=== PATIENT | female | born 1955 | race Caucasian/White ===

== ENCOUNTER → 2020-06-21 11:43 | Outpatient (CLI) | payer BC, SELFPAY ==
--- NOTE | ~2020-06-21 | XR_ITS ---
XR hand RT min 3V DATE: 06/21/2020 11:58 INDICATION: Right hand pain across metacarpals TECHNIQUE: 3 views COMPARISON: None FINDINGS: There is osteophytic changes of the interphalangeal joints including the first digit interp halangeal joint, distal interphalangeal joint of the second digit and proximal interphalangeal joint of the fifth digit in particular. No fracture, dislocation, periosteal reaction or bone destruction. No erosive change or chondrocalcin osis. IMPRESSION: Osteoarthritis of the interphalangeal joints Reviewed, dictated and finalized at location B.
--- NOTE | ~2020-06-21 | XR_ITS ---
XR hand LT min 3V DATE: 06/21/2020 11:57 INDICATION: Left hand pain across metacarpal region TECHNIQUE: 3 views of left hand COMPARISON: None FINDINGS: No fracture or dislocation, periosteal reaction or bone destruction. No erosive changes or chondrocalcinosis. Small degenerative ossicle at the dorsal aspect of the distal interphalangeal join t of the third digit. Osteoarthritic change of the distal interphalangeal joint of the second digit i s noted as well. IMPRESSION: Mild osteoarthritis Reviewed, dictated and finalized at location B. IMPRESSION: Mild osteoarthritis
== END ==
PROVIDERS: PCP Internal Medicine; Visit Provider Internal Medicine
DX: M19.041 Primary osteoarthritis, right hand (principal); M19.042 Primary osteoarthritis, left hand
CPT/HCPCS: 73130

== ENCOUNTER 2020-12-03 13:00 | Outpatient (CLI) | payer BC, SELFPAY | END 2020-12-03 13:01 | disposition home or self-care (01) | LOC: ANHCOVIDVC 13:00 | PROVIDERS: PCP Internal Medicine | DX: Z23 Encounter for immunization (principal) | CPT/HCPCS: 0001A; 91300 ==

== ENCOUNTER 2020-12-24 11:06 | Outpatient (CLI) | payer BC, SELFPAY | END 2020-12-24 11:07 | disposition home or self-care (01) | LOC: ANHCOVIDVC 11:06 | PROVIDERS: PCP Internal Medicine | DX: Z23 Encounter for immunization (principal) | CPT/HCPCS: 0002A; 91300 ==

== ENCOUNTER 2021-04-27 14:33 | Emergency (ER) | payer MEDICARE, SELFPAY ==
[2021-04-27 14:32] VITALS: BP 118/68; PULSE 74; RESP 14; TEMP 36.9; O2SAT 98
--- NOTE | 2021-04-27 14:36 | ECG_ITS ---
Measurements Intervals [place] Rate: 68 P: 35 MS: 157 QRS: 24 QRSD: 90 T: 29 QT: 406 QTc: 435 Interpretive Statements SINUS RHYTHM BORDERLINE T WAVE ABNORMALITY- ANTERIOR LEADS BORDERLINE ECG Electronically Signed On 04-27-2021 16:55:19 CDT by Easton Cedeño D.O.
[2021-04-27 15:34] VITALS: BP 126/73; PULSE 64; RESP 17; O2SAT 96
[2021-04-27 15:54] LABS: Basophils Absolute Auto 0.1 K/mm3 (0.0-0.1); Eosinophils Absolute Auto 0.1 K/mm3 (0-0.3); Eosinophils Percent Auto 2.2 % (0-4.4); Hematocrit 35.1 % (37.0-47.0); Hemoglobin 10.7 g/dL (12.0-15.0); Immature Granulocyte Absolute 0.02 K/mm3 (0.00-0.031); Immature Granulocyte Percent A 0.3 % (0-0.5); Immature Platelet Fraction Pct 5.8 % (0.9-11.2); Lymphocytes Absolute Auto 1.79 K/mm3 (0.9-3.2); Lymphocytes Percent Auto 29.7 % (18.3-44.2); Mean Corpuscular HGB Conc 30.5 g/dl (32-36); Mean Corpuscular Hemoglobin 21.9 pg (26-34); Mean Corpuscular Volume 71.9 fl (80-100); Monocytes Absolute Auto 0.7 K/mm3 (0.1-0.6); Monocytes Percent Auto 11.1 % (2.6-8.5); Neutrophils Absolute Auto 3.4 K/mm3 (1.3-6.7); Neutrophils Percent Auto 55.7 % (45.5-73.1); Platelet Count Result 253 k/mm3 (150-375); Red Blood Count 4.88 M/mm3 (4.2-5.4); Red Cell Distribution Width 15.4 % (11.5-14.5)
--- NOTE | 2021-04-27 16:03 | PC.NURSE ---
Patient attempting to provide urine at this time.
[2021-04-27] MEDS: SODIUM CHLORIDE 0.9% IV 1,000 ML 999 ML IV CONT (16:05)
[2021-04-27 16:08] LABS: Alanine Aminotransferase 27 U/L (4-35); Albumin Level 3.8 g/dL (3.5-5.1); Alkaline Phosphatase 63 U/L (38-126); Anion Gap 5 mmol/L (8-16); Aspartate Amino Transferase 26 U/L (14-36); Bilirubin,Total < 0.1 mg/dL (0.2-1.3); Blood Urea Nitrogen 14 mg/dL (7-17); Calcium 8.9 mg/dL (8.4-10.2); Carbon Dioxide 27 mmol/L (22-30); Chloride 102 mmol/L (98-107); Estimated CRCL calculation 53 ml/min; Estimated Glomerular Filt Rate > 60; Glucose 92 mg/dL (65-110); Potassium 3.8 mmol/L (3.4-5.0); Sodium 134 mmol/L (137-145)
[2021-04-27 16:28] LABS: Add Urine Microscopic? YES; Appearance Urine Clear (Clear); Bilirubin Urine Negative (Negative); Blood Urine Negative (Negative); Color Urine Straw (Yellow); Glucose Urine UA Negative (Negative); Ketones Urine Negative (Negative); Leukocyte Esterase Ur Trace LEU/UL (Negative); Mucus Urine Rare /lpf; Nitrate Urine Negative (Negative); Protein Urine Negative (Negative); RBC Urine 0-2 /hpf (0-2); Specific Grav Ur 1.012 (1.001-1.035); Urobilinogen Urine Negative mg/dL (<2.0); WBC Urine 0-3 /hpf
[2021-04-27 17:11] VITALS: BP 133/74; PULSE 77; RESP 16; O2SAT 98
--- NOTE | 2021-04-27 17:55 | ED.GENADULT ---
HPI - General Adult General Chief complaint: Altered Mental Status Stated complaint: ?AMS Time Seen by Provider: 04/27/21 14:43 History of Present Illness HPI narrative: Patient is a 66-year-old female who presents ER with confusion. Patient took 2 separate doses of Benadryl and some sleeping medication last night. She did not really sleep and then woke up and had breakfast has been going on her day. She then started having some depressed mental status this afternoon. She is alert and oriented x3 but is more tired than usual. Denies any fevers or chills or sweats. No sinus congestion or sore throat. No urinary symptoms. Related Data Home Medications Medication Instructions Recorded Confirmed fluticasone propionate 50 1 spray NASAL DAILY 08/30/19 07/25/20 mcg/actuation nasal spray,suspension olopatadine 0.1 % eye drops 1 drop EACH EYE BID 08/30/19 07/25/20 Allergies Allergy/AdvReac Type Severity Reaction Status Date / Time propofol Allergy Unknown Unknown Verified 07/25/20 12:02 Review of Systems Review of Systems: All systems reviewed & are unremarkable except as noted in HPI and below Constitutional: Constitutional: Denies chills, Denies fever(s) and Reports weakness ENT: Denies nasal congestion and Denies sore throat Cardiovascular: Cardiovascular: Denies chest pain, Denies rapid heart rate and Denies radiating jaw, neck or arm pain Respiratory: Respiratory: Denies cough, Denies dyspnea and Denies wheezing Gastrointestinal: Gastrointestinal: Denies nausea and Denies vomiting Neurologic: Denies syncope, Denies focal weakness and Denies numbness PMFSH Past Medical History Medical History Anemia Anxiety Arthritis Broken arm Cancer, skin, squamous cell Chronic vasomotor rhinitis Depression Encounter for Routine Gynecological Examination History of Surgical History Surgical History [place] teeth removed Family History Family History Mother Hypertension Family history of malignant neoplasm of breast in first degree relative Social History Social History Smoking status: Never smoker Second hand tobacco smoke exposure: No Alcohol intake: current Exam Narrative: GENERAL: Well-appearing, well-nourished, and in no acute distress. HEAD: Normocephalic, atraumatic. EYES: PERRL and EOMI. ENT: Mucous membranes moist. CHEST: Clear to auscultation. No respiratory distress. HEART: Regular rate and rhythm. Normal peripheral pulses. ABDOMEN: Soft, nontender, nondistended. EXTREMITIES: Normal range of motion. No edema. NEURO: Alert and oriented x3. PSYCH: Normal mood and affect. Course Course Emergency Course: Patient awake alert and oriented x3. She reports she is much more alert. Ambulates steady gait. Discharge home. Vital Signs Vital signs: Vital Signs Temperature 98.4 F 04/27/21 14:32 Pulse Rate 74 04/27/21 14:32 Respiratory Rate 14 04/27/21 14:32 Blood Pressure 118/68 04/27/21 14:32 Pulse Oximetry 98 04/27/21 14:32 Temperature 98.4 F 04/27/21 14:32 Pulse Rate 74 04/27/21 14:32 Respiratory Rate 14 04/27/21 14:32 Blood Pressure 118/68 04/27/21 14:32 Pulse Oximetry 98 04/27/21 14:32 Medical Decision Making Vital Signs Vital Signs: Vital Signs Temperature 98.4 F 04/27/21 14:32 Pulse Rate 74 04/27/21 14:32 Respiratory Rate 14 04/27/21 14:32 Blood Pressure 118/68 04/27/21 14:32 Pulse Oximetry 98 04/27/21 14:32 Temperature 98.4 F 04/27/21 14:32 Pulse Rate 74 04/27/21 14:32 Respiratory Rate 14 04/27/21 14:32 Blood Pressure 118/68 04/27/21 14:32 Pulse Oximetry 98 04/27/21 14:32 Lab Data Result diagrams: 04/27/21 15:31 04/27/21 15:31 Labs:
--- NOTE | 2021-04-27 18:13 | PC.NURSE ---
Patient able to ambulate without any difficulty.
[2021-04-27 18:28] VITALS: BP 127/78; PULSE 69; RESP 16; O2SAT 97
== END 2021-04-27 18:37 | disposition home or self-care (01) ==
PROVIDERS: Emergency Provider Emergency Medicine; PCP Internal Medicine
DX: R53.83 Other fatigue (principal); D64.9 Anemia, unspecified; M19.90 Unspecified osteoarthritis, unspecified site; Z85.828 Personal history of other malignant neoplasm of skin; F41.9 Anxiety disorder, unspecified; F32.9 Major depressive disorder, single episode, unspecified; R94.31 Abnormal electrocardiogram [ECG] [EKG]
CPT/HCPCS: 36415; 80053; 81001; 85025; 85055; 93005; 96360; 99284; J7030

== ENCOUNTER 2021-10-14 12:39 | Outpatient (CLI) | payer MEDICARE, SELFPAY ==
--- NOTE | ~2021-10-14 | US_ITS ---
EXAMINATION: US aorta [facility] DATE: 10/14/2021 15:39 PRODUCE CLERK INDICATION: Screening for cardiovascular disease TECHNIQUE: Grayscale, color Doppler, and pulsed Doppler images of the aorta and common iliac arteries were obtained. COMPARISON: None. FINDINGS: The proximal aorta measures 2.5 cm greatest sagittal dimension. The mid aorta measures 1.8 cm greates t sagittal dimension. The distal aorta measures 1.7 cm greatest sagittal dimension. The right common internal iliac artery measures 0.9 cm. The left common iliac artery measures 0.8 cm. IMPRESSION: 1. Normal caliber aorta without evidence for aneurysm. Reviewed, dictated and finalized at location B. UCE CLERK
== END 2021-10-14 12:40 | disposition home or self-care (01) ==
PROVIDERS: PCP Internal Medicine; Visit Provider Internal Medicine
DX: Z13.6 Encounter for screening for cardiovascular disorders (principal)
CPT/HCPCS: 76706

== ENCOUNTER 2021-11-06 01:58 | Day surgery (SDC) | payer MEDICARE, SELFPAY ==
[2021-10-24 13:09] VITALS: BMI 23.8
[2021-11-06 11:27] VITALS: BP 125/61; PULSE 80; RESP 18; TEMP 36.4; O2SAT 97
--- NOTE | 2021-11-06 11:28 | PM.HPGS ---
History of Present Illness History of Present Illness Consent: Risks, benefits, and alternatives have been discussed and questions answered. Patient agrees to proceed with procedure. Chief complaint: hx of colon polyps Narrative: Concepcion Doan is a 66 year old female referred for colon cancer screening. She had 2 polyps removed about 6 years ago. Review of Systems Review of Systems: All systems reviewed & are unremarkable except as noted in HPI and below PMFSH Past Medical History Medical History Anemia Anxiety Arthritis Broken arm Cancer, skin, squamous cell Chronic vasomotor rhinitis Depression Encounter for Routine Gynecological Examination History of Surgical History Surgical History History of surgery on arm [place] teeth removed Family History Family History Mother Hypertension Family history of malignant neoplasm of breast in first degree relative Social History Social History Smoking packs per day: 1.5 Smoking cigarettes per day: 30.0 Smoking status: Never smoker Second hand tobacco smoke exposure: No Additional smoking assessment comments: as a child Alcohol intake: current Drinks per week: 7 Alcohol use details: mixed drinks Substance use: never Substance use type: does not use Living arrangements: with family Gender identity (if verbalized by the patient): Female Sexual Orientation (if Verbalized by the Patient): Straight or Heterosexual Spiritual care concerns: No Meds Home Medications and Allergies Home Medications Medication Instructions Recorded Confirmed Type fluticasone propionate 50 1 spray NASAL DAILY #16 g 07/16/21 10/24/21 Rx mcg/actuation nasal spray,suspension risedronate 150 mg tablet 150 mg PO MONTHLY #3 tablet 07/16/21 10/24/21 Rx zolpidem 10 mg tablet 10 mg PO QHS PRN #30 tablet 07/17/21 10/24/21 Rx calcium carbonate 500 mg calcium 500 mg PO DAILY 07/30/21 10/24/21 History (1,250 mg) chewable tablet ferrous sulfate 325 mg PO DAILY 10/24/21 10/24/21 History bupropion HCl 150 mg 24 hr tablet, 150 mg PO QAM #90 tablet 11/05/21 11/06/21 Rx extended release escitalopram oxalate 10 mg tablet 10 mg PO DAILY #90 tablet 11/05/21 11/06/21 Rx Allergies Allergy/AdvReac Type Severity Reaction Status Date / Time propofol Allergy Severe Other Verified 11/06/21 11:26 Vital Signs Vital Signs - 24 hr 11/06/21 11:27 Temperature 36.4 C Pulse Rate 80 Respiratory Rate 18 Blood Pressure 125/61 Pulse Oximetry 97 Exam Resp: Auscultation: clear to auscultation bilaterally Cardio: Rate: regular rate Rhythm: regular rhythm GI: GI Palp: Yes Soft to palpation and No Tenderness to palpation present (GI) Assessment and Plan Assessment and plan (1) Colon cancer screening: Code(s): Z12.11 - Encounter for screening for malignant neoplasm of colon Status: Acute Assessment and Plan: Colonoscopy with possible biopsy or polypectomy or cautery or injection of substances.
[2021-11-06] MEDS: LACTATED RINGERS 1,000 ML 150 ML IV CONT (11:39)
--- NOTE | 2021-11-06 11:50 | WPDANESEPPF ---
Anes - Initial Pre Proc Eval Procedure: Operation Date: 11/06/21 12:30 Proposed Procedures p Screening Colonoscopy - Jeremías Buckley MD Date/Time: 11/06/21 11:50 Surgeon: Jeremías Buckley MD Pre Op Diagnosis: hx of colon polyps Patient Data Age: 66 Gender: F Height: 1.6 m Weight: 61.4 kg Last Vital Signs Temp 36.4 C 11/06/21 11:27 Pulse 80 11/06/21 11:27 Resp 18 11/06/21 11:27 BP 125/61 11/06/21 11:27 Pulse Ox 97 11/06/21 11:27 Allergies Allergy/AdvReac Type Severity Reaction Status Date / Time propofol Allergy Severe Other Verified 11/06/21 11:26 Home Medications Medication Instructions Recorded Confirmed Type fluticasone propionate 50 1 spray NASAL DAILY #16 g 07/16/21 10/24/21 Rx mcg/actuation nasal spray,suspension risedronate 150 mg tablet 150 mg PO MONTHLY #3 tablet 07/16/21 10/24/21 Rx zolpidem 10 mg tablet 10 mg PO QHS PRN #30 tablet 07/17/21 10/24/21 Rx calcium carbonate 500 mg calcium 500 mg PO DAILY 07/30/21 10/24/21 History (1,250 mg) chewable tablet ferrous sulfate 325 mg PO DAILY 10/24/21 10/24/21 History bupropion HCl 150 mg 24 hr tablet, 150 mg PO QAM #90 tablet 11/05/21 11/06/21 Rx extended release escitalopram oxalate 10 mg tablet 10 mg PO DAILY #90 tablet 11/05/21 11/06/21 Rx Patient hx anesthesia problems: other (propofol allergy (life threatening per patient although unclear exactly) during colonoscopy in [place] 11 years ago) Family hx anesthesia problems: none Results Review: All pre-operative results and documents have been reviewed as part of the pre-operative evaluation. [facility] Past Medical History Medical History Anemia Anxiety Arthritis Broken arm Cancer, skin, squamous cell Chronic vasomotor rhinitis Depression Encounter for Routine Gynecological Examination History of Surgical History Surgical History History of surgery on arm [place] teeth removed Family History Family History Mother Hypertension Family history of malignant neoplasm of breast in first degree relative Social History Social History (Updated 11/06/21 @ 11:50 by Toy Kovacs MD) Smoking status: Never smoker Second hand tobacco smoke exposure: No Additional smoking assessment comments: as a child Alcohol intake: current Drinks per week: 7 Alcohol use details: mixed drinks Substance use: never Substance use type: does not use Living arrangements: with family Gender identity (if verbalized by the patient): Female Sexual Orientation (if Verbalized by the Patient): Straight or Heterosexual Spiritual care concerns: No Anes - Eval Final PreProcedure Day of Procedure 11/06/21 11:50 Patient weight: normal Heart: regular rate and rhythm Lungs: clear to auscultation Airway: Mallampati scale class II Neurological: alert and oriented Last oral intake: >/= 8 hours ASA classification: II Emergent: no Anesthetic plan: proceed Anesthesia type and monitoring: general GIVS and standard monitoring Results Review: All pre-operative results and documents have been reviewed as part of the pre-operative evaluation. Informed Consent: The patient's anesthetic plan and its attendant risks and benefits were discussed with the patient/family/POA. Questions were solicited and answers provided to the satisfaction of the patient/family/POA.
[2021-11-06 13:06] VITALS: BP 122/76; PULSE 68; RESP 18; O2SAT 100
[2021-11-06 13:16] VITALS: BP 130/75; PULSE 76; RESP 17; O2SAT 100
[2021-11-06 13:26] VITALS: BP 124/67; PULSE 67; RESP 19; O2SAT 100
== END 2021-11-06 13:49 | disposition home or self-care (01) ==
PROVIDERS: PCP Internal Medicine; Visit Provider Internal Medicine Gastroenterology
PROC: 0DJD8ZZ Inspection of Lower Intestinal Tract, Via Natural or Artificial Opening Endoscopic (ICD-10-PCS; CPT 45378; principal; 2021-11-06 12:30)
DX: Z12.11 Encounter for screening for malignant neoplasm of colon (principal); D12.2 Benign neoplasm of ascending colon; D64.9 Anemia, unspecified; F41.8 Other specified anxiety disorders
CPT/HCPCS: 45385; 45381; 45388; 88305; J2250; J7120

== ENCOUNTER 2022-05-04 09:55 | Emergency (ER) | payer MEDICARE, SELFPAY ==
[2022-05-04] VITALS (21 sets, daily range): BP systolic 119–137; BP diastolic 56–81; PULSE 56–86; RESP 12–20; TEMP 36.4; O2SAT 98–100
--- NOTE | ~2022-05-04 | XR_ITS ---
EXAMINATION: XR chest 2V DATE: 05/04/2022 10:21 INDICATION: Chest tightness TECHNIQUE: PA and lateral views of the chest are obtained. COMPARISON: None available FINDINGS: The lungs are free of acute opacities. No pleural effusion or pneumothorax. The cardiomedia stinal silhouette is normal. There is moderate thoracic spondylosis. IMPRESSION: 1. No acute cardiopulmonary abnormality. Reviewed, dictated and finalized at location A.
--- NOTE | 2022-05-04 10:00 | ECG_ITS ---
Measurements Intervals [place] Rate: 77 P: 54 DE: 147 QRS: 43 QRSD: 88 T: 42 QT: 355 QTc: 402 Interpretive Statements SINUS RHYTHM NORMAL ECG COMPARED TO ECG 04/27/2021 14:40:58 NO SIGNIFICANT CHANGES Electronically Signed On 05-04-2022 14:42:38 CDT by Douglas Ayon M.D.
[2022-05-04 10:15] LABS: Basophils Absolute Auto 0.1 K/mm3 (0.0-0.1); Basophils Percent Auto 0.9 % (0.2-1.2); Eosinophils Absolute Auto 0.1 K/mm3 (0-0.3); Hematocrit 36.5 % (37.0-47.0); Hemoglobin 10.9 g/dL (12.0-15.0); Immature Granulocyte Absolute 0.01 K/mm3 (0.00-0.031); Immature Granulocyte Percent A 0.2 % (0-0.5); Immature Platelet Fraction Pct 5.8 % (0.9-11.2); Lymphocytes Absolute Auto 1.98 K/mm3 (0.9-3.2); Lymphocytes Percent Auto 30.9 % (18.3-44.2); Mean Corpuscular HGB Conc 29.9 g/dl (32-36); Mean Corpuscular Hemoglobin 21.6 pg (26-34); Mean Corpuscular Volume 72.3 fl (80-100); Mean Platelet Volume 13.1 fl (7.4-10.4); Monocytes Absolute Auto 0.7 K/mm3 (0.1-0.6); Monocytes Percent Auto 10.6 % (2.6-8.5); Neutrophils Absolute Auto 3.6 K/mm3 (1.3-6.7); Neutrophils Percent Auto 55.4 % (45.5-73.1); Platelet Count Result 247 k/mm3 (150-375); Red Blood Count 5.05 M/mm3 (4.2-5.4); Red Cell Distribution Width 15.4 % (11.5-14.5); White Blood Count 6.4 K/mm3 (4.5-10.0)
[2022-05-04 10:24] LABS: Partial Thromboplastin Time 24.7 SECONDS (22.3-36.8); Prothrombin Time 12.6 Seconds (11.1-14.7)
[2022-05-04 10:25] LABS: Alanine Aminotransferase 23 U/L (6-35); Albumin Level 4.4 g/dL (3.5-5.1); Alkaline Phosphatase 62 U/L (38-126); Anion Gap 9 mmol/L (8-16); Aspartate Amino Transferase 23 U/L (14-36); Bilirubin,Total 0.5 mg/dL (0.2-1.3); Blood Urea Nitrogen 16 mg/dL (7-17); Calcium 9.1 mg/dL (8.4-10.2); Carbon Dioxide 28 mmol/L (22-30); Chloride 100 mmol/L (98-107); Estimated CRCL calculation 56 ml/min; Estimated Glomerular Filt Rate > 60; Glucose 102 mg/dL (65-110); Lipase 114 U/L (23-300); Potassium 3.8 mmol/L (3.4-5.0); Sodium 137 mmol/L (137-145)
[2022-05-04 10:36] LABS: Troponin I < 0.012 ng/mL (0.000-0.034)
--- NOTE | 2022-05-04 10:43 | ED.CHESTPAIN ---
HPI - Chest Pain General Chief Complaint: Chest Pain Stated Complaint: chest tightness, back pain Time Seen by Provider: 05/04/22 10:42 Source: patient Mode of arrival: ambulatory History of Present Illness HPI narrative: 67 years old white female woke up this morning with severe sharp pain midline lower neck posteriorly associated with slight dizziness resolved in 10 minutes after ibuprofen. Currently patient is asymptomatic. Patient denies having similar symptoms. Patient is status post COVID infection 3 weeks ago, still have slight lingering dry cough. She denies any fever, chills, nausea, vomiting, chest pain, shortness of breath, or abdominal pain, History of depression, patient denies smoking or using drugs, drinks daily Related Data Home Medications Medication Instructions Recorded Confirmed calcium carbonate 500 mg calcium 500 mg PO DAILY 07/30/21 12/23/21 (1,250 mg) chewable tablet (Calcium 500) ferrous sulfate 325 mg (65 mg 325 mg PO DAILY 10/24/21 12/23/21 iron) tablet Allergies Allergy/AdvReac Type Severity Reaction Status Date / Time propofol Allergy Severe Other Verified 05/04/22 10:03 Review of Systems Review of Systems: All systems reviewed & are unremarkable except as noted in HPI and below PMFSH Past Medical History Medical History Abnormal mammogram Anemia Anxiety Arthritis Broken arm Cancer, skin, squamous cell Chronic vasomotor rhinitis Depression Encounter for Routine Gynecological Examination History of Surgical History Surgical History History of surgery on arm [place] teeth removed Family History Family History Mother Hypertension Family history of malignant neoplasm of breast in first degree relative Social History Social History Smoking status: Never smoker Second hand tobacco smoke exposure: No Additional smoking assessment comments: as a child Alcohol intake: current Drinks per week: 7 Alcohol use details: mixed drinks Substance use: never Substance use type: does not use Gender identity (if verbalized by the patient): Female Sexual Orientation (if Verbalized by the Patient): Straight or Heterosexual Spiritual care concerns: No Exam Narrative: General appearance: Well-developed, well-nourished Skin: Normal color Head: Normocephalic, nontraumatic Eyes: Clear conjunctiva ENT: Oropharynx normal, ears normal, nose normal Neck: Supple, nontender Chest and respiratory: Airway patent, no respiratory distress, no accessory muscle use Heart: Regular rate/rhythm Abdomen: Soft, nontender, no organomegaly, quiet bowel sounds Vascular: Normal peripheral pulses, normal capillary refill. Musculoskeletal: Normal range of motion, nontender back Neurologic: Alert and oriented ?3, TREE PRUNER is normal as tested, no gross motor deficit Course Course Emergency Course: Musculoskeletal pain is my concern. Work-up today did not show any finding to explain patient condition Vital Signs Vital signs: Vital Signs Temperature 36.4 C 05/04/22 10:00 Pulse Rate 86 05/04/22 10:00 Respiratory Rate 20 05/04/22 10:00 Blood Pressure 134/65 05/04/22 10:00 Pulse Oximetry 99 05/04/22 10:00 Oxygen Delivery Room Air 05/04/22 10:00 Temperature 36.4 C 05/04/22 10:00 Pulse Rate 57 L 05/04/22 12:45 Respiratory Rate 12 05/04/22 12:45 Blood Pressure 119/68 05/04/22 12:32 Pulse Oximetry 100 05/04/22 12:45 Oxygen Delivery Room Air 05/04/22 10:00
[2022-05-04 13:25] LABS: Troponin I < 0.012 ng/mL (0.000-0.034)
== END 2022-05-04 13:25 | disposition home or self-care (01) ==
PROVIDERS: Emergency Provider Emergency Medicine; PCP Family Medicine
DX: M54.2 Cervicalgia (principal); D64.9 Anemia, unspecified; M19.90 Unspecified osteoarthritis, unspecified site; F41.9 Anxiety disorder, unspecified; F32.A Depression, unspecified; Z86.16 Personal history of COVID-19; Z85.828 Personal history of other malignant neoplasm of skin
CPT/HCPCS: 36415; 71046; 80053; 83690; 84484; 85025; 85055; 85380; 85610; 85730; 93005; 99284

== ENCOUNTER 2022-05-13 15:00 | Outpatient (CLI) | payer MEDICARE, SELFPAY ==
[2022-05-13 18:54] LABS: Iron 68 ug/dL (37-170)
[2022-05-13 19:03] LABS: Percent Iron Saturation 23 % (20-50)
== END 2022-05-13 15:01 | disposition home or self-care (01) ==
LOC: ANHGOSHLAB 15:04
PROVIDERS: PCP Family Medicine; Visit Provider Family Medicine
DX: D64.9 Anemia, unspecified (principal); R53.83 Other fatigue
CPT/HCPCS: 36415; 82728; 83540; 83550; 84443

== ENCOUNTER 2022-07-02 10:33 | Outpatient (CLI) | payer MEDICARE, SELFPAY ==
--- NOTE | 2022-07-02 10:39 | EST_ITS ---
Patient Info Name: Concepcion Doan Age: 67 years : 1955 Gender: Female Ht: 63 in Wt: 134 lbs BSA: 1.65 m2 Exam Date: 07/02/2022 11:27 AM Exam Location: [facility] Stress Patient Status: Outpatient Admit Date: 07/02/2022 Staff Ordering Physician: Lalito Velarde DO Attending Provider: Lalito Velarde DO Exercise Technologist: Lalito Colmenares RDCS, RT Exercise Physician: Easton Cedeño DO Exam Type: CA stress test treadmill Study Info A treadmill exercise stress test was performed. Summary 1. 1. Negative [place]el exercise stress test for ischemic ST changes by ECG criteria. 2. 2. Reduced functional capacity, achieving 7 METs of workload. 3. 3. Hypertensive response to exercise. 4. 4. Appropriate HR response to exercise. 5. 5. Appropriate HR recovery at 1 minute post exercise. 6. 6. No imaging with stress testing. 7. 7. Patient informed of the above results. Protocol: [place] Stress ECG Details Stage: REST Duration (min): 2 min : 13 sec Speed (mph): 0.0 Grade (%): 0 HR (bpm): 64 SBP (mmHg): 129 DBP (mmHg): 77 METS: --- Stage: REST Duration (min): 14 min : 44 sec Speed (mph): 0.0 Grade (%): 0 HR (bpm): 74 SBP (mmHg): 129 DBP (mmHg): 77 METS: --- Stage: STAGE 1 Duration (min): 1 min : 0 sec Speed (mph): 1.7 Grade (%): 10 HR (bpm): 98 SBP (mmHg): 129 DBP (mmHg): 77 METS: --- Stage: STAGE 1 Duration (min): 2 min : 0 sec Speed (mph): 1.7 Grade (%): 10 HR (bpm): 119 SBP (mmHg): 129 DBP (mmHg): 77 METS: --- Stage: STAGE 1 Duration (min): 3 min : 0 sec Speed (mph): 1.7 Grade (%): 10 HR (bpm): 127 SBP (mmHg): 129 DBP (mmHg): 77 METS: --- Stage: STAGE 2 Duration (min): 1 min : 0 sec Speed (mph): 2.5 Grade (%): 12 HR (bpm): 133 SBP (mmHg): 203 DBP (mmHg): 83 METS: --- Stage: STAGE 2 Duration (min): 1 min : 22 sec Speed (mph): 2.5 Grade (%): 12 HR (bpm): 135 SBP (mmHg): 203 DBP (mmHg): 83 METS: --- Stage: RECOVERY Duration (min): 0 min : 37 sec Speed (mph): 0.0 Grade (%): 0 HR (bpm): 115 SBP (mmHg): 204 DBP (mmHg): 74 METS: --- Stage: RECOVERY Duration (min): 1 min : 37 sec Speed (mph): 0.0 Grade (%): 0 HR (bpm): 91 SBP (mmHg): 204 DBP (mmHg): 74 METS: --- Stage: RECOVERY Duration (min): 2 min : 37 sec Speed (mph): 0.0 Grade (%): 0 HR (bpm): 81 SBP (mmHg): 204 DBP (mmHg): 74 METS: --- Stage: RECOVERY Duration (min): 3 min : 7 sec Speed (mph): 0.0 Grade (%): 0 HR (bpm): 81 SBP (mmHg): 156 DBP (mmHg): 77 METS: --- Rest HR: 74 bpm Peak HR: 135 bpm Rest Sys BP: 129 mmHg Peak Sys BP: 204 mmHg Max Pred HR: 154 bpm % Max Pred HR: 88 % Target HR: 131 bpm Max RPP: 27,540 bpm*mmHg Santiago Score: -2 BP Response: Patient exhibited a hypertensive response with stress Termination Reason
== END 2022-07-02 10:34 | disposition home or self-care (01) ==
LOC: ANHCARD 10:35
PROVIDERS: PCP Family Medicine; Visit Provider Family Medicine
DX: R07.9 Chest pain, unspecified (principal)
CPT/HCPCS: 93017

== ENCOUNTER 2023-03-04 08:00 | Outpatient (NON) | payer MEDICARE, SELFPAY ==
[2023-03-05 16:25] LABS: Basophils Absolute Auto 0.1 K/mm3 (0.0-0.1); Eosinophils Absolute Auto 0.2 K/mm3 (0-0.3); Eosinophils Percent Auto 2.7 % (0-4.4); Hematocrit 38.3 % (37.0-47.0); Hemoglobin 11.5 g/dL (12.0-15.0); Immature Granulocyte Absolute 0.01 K/mm3 (0.00-0.031); Immature Granulocyte Percent A 0.2 % (0-0.5); Lymphocytes Absolute Auto 1.77 K/mm3 (0.9-3.2); Lymphocytes Percent Auto 28.3 % (18.3-44.2); Mean Corpuscular Hemoglobin 21.4 pg (26-34); Mean Corpuscular Volume 71.3 fl (80-100); Monocytes Absolute Auto 0.7 K/mm3 (0.1-0.6); Monocytes Percent Auto 10.4 % (2.6-8.5); Neutrophils Absolute Auto 3.6 K/mm3 (1.3-6.7); Neutrophils Percent Auto 57.4 % (45.5-73.1); Platelet Count Result 334 k/mm3 (150-375); Red Blood Count 5.37 M/mm3 (4.2-5.4); Red Cell Distribution Width 14.9 % (11.5-14.5); White Blood Count 6.3 K/mm3 (4.5-10.0)
[2023-03-05 17:50] LABS: Iron 129 ug/dL (37-170)
[2023-03-05 18:27] LABS: Alanine Aminotransferase 24 U/L (6-35); Albumin Level 4.2 g/dL (3.5-5.1); Alkaline Phosphatase 61 U/L (38-126); Anion Gap 3 mmol/L (8-16); Aspartate Amino Transferase 34 U/L (14-36); Bilirubin,Total 0.4 mg/dL (0.2-1.3); Blood Urea Nitrogen 17 mg/dL (7-17); Calcium 8.8 mg/dL (8.4-10.2); Carbon Dioxide 30 mmol/L (22-30); Chloride 104 mmol/L (98-107); Cholesterol 212 mg/dL (0-200); Estimated Glomerular Filt Rate > 60; Glucose 82 mg/dL (65-110); HDL Direct 55 mg/dL; Potassium 4.4 mmol/L (3.4-5.0); Sodium 137 mmol/L (137-145); Triglycerides 83 mg/dL (<150)
[2023-03-05 18:39] LABS: LDL Cholesterol Direct 124 mg/dL; Percent Iron Saturation 44 % (20-50)
== END 2023-03-04 08:01 | disposition home or self-care (01) ==
PROVIDERS: PCP Family Medicine; Visit Provider Family Medicine
DX: D64.9 Anemia, unspecified (principal); R53.83 Other fatigue; E78.5 Hyperlipidemia, unspecified; Z13.228 Encounter for screening for other metabolic disorders
CPT/HCPCS: 36415; 80053; 80061; 82728; 83540; 83550; 85025

== ENCOUNTER 2023-05-10 10:25 | Emergency (ER) | payer MEDICARE, SELFPAY ==
[2023-05-10 10:38] VITALS: BP 138/71; PULSE 69; RESP 16; TEMP 36.4; O2SAT 99
[2023-05-10 10:40] VITALS: BP 138/71; PULSE 69; RESP 16; TEMP 36.4; O2SAT 99
--- NOTE | 2023-05-10 10:46 | ED.GENADULT ---
HPI - General Adult General Chief complaint: Skin/Abscess/Foreign Body Stated complaint: Rash on right arm Source: patient Mode of arrival: ambulatory Limitations: no limitations History of Present Illness HPI narrative: Patient presents for evaluation of rash to the right upper extremity for the last 4 days. She had been working out in the yard three days prior to symptom onset. She had a aydin in her right upper arm that she initially thought was a bee sting. Symptoms then migrated down the RUE distally. She has had allergic reactions to poison rj in the past, but symptoms typically are much more disseminated in the past. She reports pruritis and burning pain in the affected area. Denies any difficulty breathing or swallowing She has tolerated steroids well in the past. She is not diabetic. She is unsure whether she has ever had chickenpox in the past. She denies any new lotions, soaps, detergents, topical products. Related Data Home Medications Medication Instructions Recorded Confirmed calcium carbonate 500 mg calcium 500 mg PO DAILY 07/30/21 05/10/23 (1,250 mg) chewable tablet (Calcium 500) ferrous sulfate 325 mg (65 mg 325 mg PO DAILY 10/24/21 05/10/23 iron) tablet cetirizine 10 mg tablet (Zyrtec) 10 mg PO DAILY 11/13/22 05/10/23 Allergies Allergy/AdvReac Type Severity Reaction Status Date / Time propofol Allergy Severe Other Verified 05/10/23 10:38 Review of Systems Review of Systems: CONSTITUTIONAL: Denies fever, chills, or sweats. EYES: Denies visual changes, redness, or discharge. ENT: Denies rhinorrhea, congestion, sore throat, or otalgia. CARDIOVASCULAR: Denies chest pain, palpitations, or edema. RESPIRATORY: Denies cough or dyspnea. GASTROINTESTINAL: Denies abdominal pain, nausea, vomiting, or diarrhea. GENITOURINARY: Denies dysuria or hematuria. SKIN: Reports painful and pruritic rash to RUE MUSCULOSKELETAL: Denies back pain, joint pain, or myalgia. NEUROLOGIC: Denies headache, numbness, dizziness, or weakness. PSYCHIATRIC: Denies anxiety or depression. [facility] Past Medical History Medical History Abnormal mammogram Anemia Anxiety Arthritis Broken arm Cancer, skin, squamous cell Chronic vasomotor rhinitis Depression Encounter for Routine Gynecological Examination History of Surgical History Surgical History History of surgery on arm [place] teeth removed Family History Family History Mother Hypertension Family history of malignant neoplasm of breast in first degree relative Social History Social History Smoking status: Never smoker Second hand tobacco smoke exposure: No Additional smoking assessment comments: as a child Alcohol intake: current Drinks per week: 7 Alcohol use details: mixed drinks Substance use: never Substance use type: does not use Lack of Transportation: No Lack of Food: Never True Current Housing: I Have Housing Concerned About Future Housing: No Difficulty Paying Gas/Electric Bills: No Difficulty Paying for Meds: No Currently Unemployed: No Education: Bachelor's Degree Difficulty w/ Childcare or Family Care: No Living arrangements: with family Occupation/Education: retired Gender identity (if verbalized by the patient): Female Sexual Orientation (if Verbalized by the Patient): Straight or Heterosexual Spiritual care concerns: No Exam Narrative: GENERAL: Well-appearing, well-nourished, and in no acute distress. HEAD: Normocephalic, atraumatic. EYES: PERRLA and EOMI. ENT: Nares clear, no rhinorrhea or epistaxis. Mucous membranes moist. Oropharynx without tonsillar hypertrophy exudate or other lesions. Bilateral TMs pearly cabrera nonbulging NECK: Supple.
== END 2023-05-10 10:48 | disposition home or self-care (01) ==
PROVIDERS: Emergency Provider Nurse Practitioner; PCP Family Medicine
DX: L30.9 Dermatitis, unspecified (principal); M19.90 Unspecified osteoarthritis, unspecified site; Z85.828 Personal history of other malignant neoplasm of skin; D64.9 Anemia, unspecified; F41.9 Anxiety disorder, unspecified; F32.A Depression, unspecified
CPT/HCPCS: 87255; 99213; G0463

== ENCOUNTER 2023-07-06 07:00 | Outpatient (NON) | payer MEDICARE, SELFPAY | END 2023-07-06 07:01 | disposition home or self-care (01) | PROVIDERS: PCP Family Medicine; Visit Provider Internal Medicine Gastroenterology | DX: K57.90 Diverticulosis of intestine, part unspecified, without perforation or abscess without bleeding (principal) | CPT/HCPCS: 88305 ==

== ENCOUNTER 2023-07-06 08:23 | Day surgery (SDC) | payer MEDICARE, SELFPAY ==
[2023-06-02 12:08] VITALS: BMI 23.8
[2023-06-18 13:53] VITALS: BMI 23.8
--- NOTE | 2023-07-03 14:42 | PM.HPGS ---
History of Present Illness History of Present Illness Consent: Risks, benefits, and alternatives have been discussed and questions answered. Patient agrees to proceed with procedure. Chief complaint: Family History of Colon Cancer Narrative: Concepcion Doan is a 68 year old female referred for colon cancer screening. She has a family history of colon cancer. Review of Systems Review of Systems: All systems reviewed & are unremarkable except as noted in HPI and below PMFSH Past Medical History Medical History Abnormal mammogram Anemia Anxiety Arthritis Broken arm Cancer, skin, squamous cell Chronic vasomotor rhinitis Depression Encounter for Routine Gynecological Examination History of Surgical History Surgical History History of surgery on arm [place] teeth removed Family History Family History Mother Hypertension Family history of malignant neoplasm of breast in first degree relative Social History Social History Smoking status: Never smoker Second hand tobacco smoke exposure: No Additional smoking assessment comments: as a child Alcohol intake: current Drinks per week: 7 Alcohol use details: One Gin/tonic daily Substance use: never Substance use type: does not use Lack of Transportation: No Lack of Food: Never True Current Housing: I Have Housing Concerned About Future Housing: No Difficulty Paying Gas/Electric Bills: No Difficulty Paying for Meds: No Currently Unemployed: No Education: Bachelor's Degree Difficulty w/ Childcare or Family Care: No Living arrangements: with family Occupation/Education: retired Gender identity (if verbalized by the patient): Female Sexual Orientation (if Verbalized by the Patient): Straight or Heterosexual Spiritual care concerns: No Meds Home Medications and Allergies Home Medications Medication Instructions Recorded Confirmed Type calcium carbonate 500 mg calcium 500 mg PO DAILY 07/30/21 07/06/23 History (1,250 mg) chewable tablet (Calcium 500) ferrous sulfate 325 mg (65 mg 325 mg PO DAILY 10/24/21 07/06/23 History iron) tablet cetirizine 10 mg tablet (Zyrtec) 10 mg PO DAILY 11/13/22 07/06/23 History risedronate 150 mg tablet 150 mg PO MONTHLY #3 tabs 11/18/22 07/06/23 Rx fluticasone propionate 50 2 spray intranasal BID #16 grams 11/25/22 07/06/23 Rx mcg/actuation nasal spray,suspension (Allergy Relief (fluticasone)) bupropion HCl 150 mg 24 hr tablet, 150 mg PO QAM #30 tabs 04/03/23 07/06/23 Rx extended release (Wellbutrin XL) escitalopram oxalate 10 mg tablet 10 mg PO DAILY #90 tabs 05/26/23 07/06/23 Rx zolpidem 10 mg tablet 10 mg PO QHS PRN insomnia #30 tabs 06/11/23 07/06/23 Rx azelastine 137 mcg (0.1 %) nasal 1 spray intranasal Q12H #30 mL 07/06/23 07/06/23 Rx spray aerosol Allergies Allergy/AdvReac Type Severity Reaction Status Date / Time propofol Allergy Severe Other Verified 07/06/23 10:12 Exam Const: General: alert Orientation/consciousness: patient oriented x3 Resp: Auscultation: clear to auscultation bilaterally Cardio: Rhythm: regular rhythm GI: GI Palp: Yes Soft to palpation and No Tenderness to palpation present (GI) Neuro: General: patient oriented x3 Assessment and Plan Assessment and plan (1) Personal history of colonic polyps: Code(s): Z86.010 - Personal history of colonic polyps Status: Acute Assessment and Plan: Colonoscopy with possible biopsy or polypectomy or cautery or injection of substances.
[2023-07-06] VITALS (7 sets, daily range): BP systolic 112–149; BP diastolic 58–77; PULSE 70–94; RESP 16–24; TEMP 37.2; O2SAT 96–100
[2023-07-06] MEDS: LACTATED RINGERS 1,000 ML 150 ML IV CONT (10:24)
--- NOTE | 2023-07-06 11:16 | WPDANESEPPF ---
Anes - Initial Pre Proc Eval Procedure: Operation Date: 07/06/23 11:30 Proposed Procedures p Diagnostic Colonoscopy - Jeremías Buckley MD Date/Time: 07/06/23 11:16 Surgeon: Jeremías Buckley MD Pre Op Diagnosis: Family History of Colon Cancer Patient Data Age: 68 Gender: F Height: 1.6 m Weight: 61 kg Last Vital Signs Temp 37.2 C 07/06/23 10:13 Pulse 92 07/06/23 10:13 Resp 16 07/06/23 10:13 BP 149/77 H 07/06/23 10:13 Pulse Ox 100 07/06/23 10:13 O2 Del Method Room Air 07/06/23 10:13 Allergies Allergy/AdvReac Type Severity Reaction Status Date / Time propofol Allergy Severe Other Verified 07/06/23 10:12 Home Medications Medication Instructions Recorded Confirmed Type calcium carbonate 500 mg calcium 500 mg PO DAILY 07/30/21 07/06/23 History (1,250 mg) chewable tablet (Calcium 500) ferrous sulfate 325 mg (65 mg 325 mg PO DAILY 10/24/21 07/06/23 History iron) tablet cetirizine 10 mg tablet (Zyrtec) 10 mg PO DAILY 11/13/22 07/06/23 History risedronate 150 mg tablet 150 mg PO MONTHLY #3 tabs 11/18/22 07/06/23 Rx fluticasone propionate 50 2 spray intranasal BID #16 grams 11/25/22 07/06/23 Rx mcg/actuation nasal spray,suspension (Allergy Relief (fluticasone)) bupropion HCl 150 mg 24 hr tablet, 150 mg PO QAM #30 tabs 04/03/23 07/06/23 Rx extended release (Wellbutrin XL) escitalopram oxalate 10 mg tablet 10 mg PO DAILY #90 tabs 05/26/23 07/06/23 Rx zolpidem 10 mg tablet 10 mg PO QHS PRN insomnia #30 tabs 06/11/23 07/06/23 Rx azelastine 137 mcg (0.1 %) nasal 1 spray intranasal Q12H #30 mL 07/06/23 07/06/23 Rx spray aerosol Patient hx anesthesia problems: none Family hx anesthesia problems: none Results Review: All pre-operative results and documents have been reviewed as part of the pre-operative evaluation. PMFSH Past Medical History Medical History Abnormal mammogram Anemia Anxiety Arthritis Broken arm Cancer, skin, squamous cell Chronic vasomotor rhinitis Depression Encounter for Routine Gynecological Examination History of Surgical History Surgical History History of surgery on arm [place] teeth removed Family History Family History Mother Hypertension Family history of malignant neoplasm of breast in first degree relative Social History Social History Smoking status: Never smoker Second hand tobacco smoke exposure: No Additional smoking assessment comments: as a child Alcohol intake: current Drinks per week: 7 Alcohol use details: One Gin/tonic daily Substance use: never Substance use type: does not use Lack of Transportation: No Lack of Food: Never True Current Housing: I Have Housing Concerned About Future Housing: No Difficulty Paying Gas/Electric Bills: No Difficulty Paying for Meds: No Currently Unemployed: No Education: Bachelor's Degree Difficulty w/ Childcare or Family Care: No Living arrangements: with family Occupation/Education: retired Gender identity (if verbalized by the patient): Female Sexual Orientation (if Verbalized by the Patient): Straight or Heterosexual Spiritual care concerns: No Anes - Eval Final PreProcedure Day of Procedure 07/06/23 11:16 Patient weight: normal Heart: regular rate and rhythm Lungs: clear to auscultation Airway: Mallampati scale class II Neurological: alert and oriented Last oral intake: >/= 8 hours ASA classification: II Emergent: no Anesthetic plan: proceed Anesthesia type and monitoring: general GIVS and standard monitoring Results Review: All pre-operative results and documents have been reviewed as part of the pre-operative evaluation. Informed Consent: The patient's anesthetic plan and i
--- NOTE | 2023-07-06 12:24 | WPDANESPN ---
Anes - Prog Note Post-Op Date/Time: 07/06/23 12:24 Cardiovascular status: normal Respiratory status: normal Airway patency: baseline Mental status: baseline Post-Op hydration status: normal Vital Signs: Last Vital Signs Temp 37.2 C 07/06/23 10:13 Pulse 83 07/06/23 12:16 Resp 16 07/06/23 12:16 BP 127/58 L 07/06/23 12:16 Pulse Ox 96 07/06/23 12:16 O2 Del Method Room Air 07/06/23 12:16 O2 Flow Rate 4 07/06/23 11:46 Pain Score (VAS): 0 I/O: Intake & Output 07/05/23 07/06/23 07/06/23 23:59 07:59 15:59 Intake Total 500 Balance 500 Patient Feedback: Patient satisfied with anesthetic care.
== END 2023-07-06 12:40 | disposition home or self-care (01) ==
PROVIDERS: PCP Family Medicine; Visit Provider Internal Medicine Gastroenterology
PROC: 0DJD8ZZ Inspection of Lower Intestinal Tract, Via Natural or Artificial Opening Endoscopic (ICD-10-PCS; CPT 45378; principal; 2023-07-06 11:30)
DX: Z86.010 Personal history of colon polyps (principal); D12.2 Benign neoplasm of ascending colon; K64.8 Other hemorrhoids
CPT/HCPCS: 45385

== ENCOUNTER 2023-08-05 15:56 | Outpatient (CLI) | payer MEDICARE, SELFPAY ==
--- NOTE | ~2023-08-05 | MM_ITS ---
EXAMINATION: MM screening fred BI w josue HISTORY: Screening mammogram TECHNIQUE: Craniocaudal and mediolateral oblique 3-D tomosynthesis images were obtained and synthetic 2-D images were generated. CAD analysis was submitted and interpreted. COMPARISON: No prior mammogram is available for comparison at this institution. BREAST PARENCHYMAL COMPOSITION: There are scattered areas of fibroglandular density. FINDINGS: Focal asymmetry is noted in the right lateral subareolar area and at mid depth in the outer mid right breast on craniocaudal view, without definite correlate on the MLO view. Diagnostic right mammogram is recommended, with ultrasound if required. Otherwise no suspicious mass, architectural distortion, malignant calcification, skin thickening or r etraction of either breast is noted. IMPRESSION: 1. Mild right mammographic asymmetry on craniocaudal view 2. Diagnostic right mammogram is recommended, with ultrasound if required BI-RADS Category 0: Incomplete: Needs additional imaging evaluation. Reviewed, dictated and finalized at location B. IDENTIAL SUPPORT SPECIALIST
== END 2023-08-05 15:57 | disposition home or self-care (01) ==
LOC: ANHIMG 16:13
PROVIDERS: PCP Family Medicine; Visit Provider Obstetrics & Gynecology
DX: Z12.31 Encounter for screening mammogram for malignant neoplasm of breast (principal); N64.89 Other specified disorders of breast
CPT/HCPCS: 77063; 77067

== ENCOUNTER 2023-08-20 11:57 | Outpatient (CLI) | payer MEDICARE, SELFPAY ==
--- NOTE | ~2023-08-20 | MM_ITS ---
EXAMINATION: MM diagnostic fred RT w josue HISTORY: This suspicious proxy 2.8 mm developing density in the outer right breast on screening CC vi ew of 08/05/2023 TECHNIQUE: Additional 3-D tomosynthesis images of the right breast were performed and synthetic 2-D i mages were generated. CAD analysis was submitted and interpreted. COMPARISON: 08/05/2023 bilateral screening mammogram FINDINGS: The 2.8 mm developing density is suggested in the outer right breast on screening craniocau sherine view of 08/05/2023 is not confirmed on these supplemental views including spot compression CC vi ew of the area. This was likely due to composite shadowing of overlapping fibroglandular IMPRESSION: 1. No mammographic evidence of malignancy 2. Routine annual mammographic screening is recommended BI-RADS Category 1: Negative Reviewed, dictated and finalized at location A. ALS OFFICER
== END 2023-08-20 11:58 | disposition home or self-care (01) ==
LOC: ANHIMG 11:58
PROVIDERS: PCP Family Medicine; Visit Provider Obstetrics & Gynecology
DX: R92.8 Other abnormal and inconclusive findings on diagnostic imaging of breast (principal)
CPT/HCPCS: 77061; 77065; G0279

== ENCOUNTER 2024-03-18 10:12 | Outpatient (CLI) | payer MEDICARE, SELFPAY ==
[2024-03-18 12:48] LABS: Basophils Absolute Auto 0.1 K/mm3 (0.0-0.1); Basophils Percent Auto 0.9 % (0.2-1.2); Eosinophils Absolute Auto 0.2 K/mm3 (0-0.3); Eosinophils Percent Auto 2.5 % (0-4.4); Hematocrit 38.9 % (37.0-47.0); Hemoglobin 11.9 g/dL (12.0-15.0); Immature Granulocyte Absolute 0.02 K/mm3 (0.00-0.031); Immature Granulocyte Percent A 0.3 % (0-0.5); Immature Platelet Fraction Pct 6.1 % (0.9-11.2); Lymphocytes Absolute Auto 2.61 K/mm3 (0.9-3.2); Mean Corpuscular HGB Conc 30.6 g/dl (32-36); Mean Corpuscular Hemoglobin 22.2 pg (26-34); Mean Corpuscular Volume 72.6 fl (80-100); Mean Platelet Volume 12.8 fl (7.4-10.4); Monocytes Absolute Auto 0.7 K/mm3 (0.1-0.6); Neutrophils Absolute Auto 2.8 K/mm3 (1.3-6.7); Neutrophils Percent Auto 44.3 % (45.5-73.1); Platelet Count Result 274 k/mm3 (150-375); Red Blood Count 5.36 M/mm3 (4.2-5.4); Red Cell Distribution Width 15.6 % (11.5-14.5); White Blood Count 6.4 K/mm3 (4.5-10.0)
[2024-03-18 13:03] LABS: Alanine Aminotransferase 22 U/L (6-35); Albumin Level 4.4 g/dL (3.5-5.1); Alkaline Phosphatase 70 U/L (38-126); Anion Gap 5 mmol/L (4-12); Aspartate Amino Transferase 36 U/L (14-36); Bilirubin,Total 0.5 mg/dL (0.2-1.3); Blood Urea Nitrogen 13 mg/dL (7-17); Calcium 9.2 mg/dL (8.4-10.2); Carbon Dioxide 30 mmol/L (22-30); Chloride 105 mmol/L (98-107); Cholesterol 200 mg/dL (0-200); Estimated Glomerular Filt Rate > 60; Glucose 89 mg/dL (65-110); HDL Direct 62 mg/dL; Potassium 4.1 mmol/L (3.4-5.0); Sodium 140 mmol/L (137-145); Triglycerides 88 mg/dL (<150)
[2024-03-18 13:13] LABS: Microcytosis 1+ (NORMAL); Platelet Estimate Adequate (Adequate); Schistocytes None Seen
[2024-03-18 13:14] LABS: Iron 105 ug/dL (37-170)
[2024-03-18 13:17] LABS: LDL Cholesterol Direct 118 mg/dL
[2024-03-18 13:51] LABS: Percent Iron Saturation 39 % (20-50)
== END 2024-03-18 10:13 | disposition home or self-care (01) ==
LOC: ANHGOSHLAB 10:14
PROVIDERS: PCP Family Medicine; Visit Provider Family Medicine
DX: R53.83 Other fatigue (principal); E78.5 Hyperlipidemia, unspecified; Z13.220 Encounter for screening for lipoid disorders; D50.9 Iron deficiency anemia, unspecified; Z13.228 Encounter for screening for other metabolic disorders
CPT/HCPCS: 36415; 80053; 80061; 82728; 83540; 83550; 85025; 85055

== ENCOUNTER 2024-04-21 08:19 | Outpatient (CLI) | payer MEDICARE, SELFPAY ==
--- NOTE | 2024-05-12 17:38 | WPDSLEEPSTUD ---
Sleep Study Date of Study: 04/21/24 Ordering Provider: Lalito Velarde DO Interpreting Physician: Remedios Jones MD Sleep Study Type: Polysomnogram Height: 1.6 m Weight: 61.235 kg Body Mass Index: 23.9 Neck Circumference (inches): 15 [place]: 5 Reason for Sleep Study Insomnia, interrupted sleep, daytime fatigue Sleep History Concepcion Briceno is a 69-year-old woman with complaints of disrupted nighttime sleep with frequent awakenings and poor daytime functioning 2 years ago she began feeling extremely tired during the day, she started taking naps but naps were not refreshing. About 6 months ago she realized that she was not sleeping well at all. She thought this was due to anemia, medications or possibly other medical problems. She has taken Ambien on and off for 6 years. 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 She is excessively sleepy during the daytime. She rarely awakens from sleep short of breath. She occasionally wakes at night with heartburn, belching or coughing.??She occasionally snores, however rarely snores loudly enough that others complain. She frequently has trouble sleeping when she has a cold. She never wakes up gasping for breath during the night. She never has breathing problems at night. She frequently sweats excessively at night. She rarely notices her heart pounding or beating irregularly during the night. She frequently falls asleep during the day. She never falls asleep involuntarily, never falls asleep while driving. She never experiences loss of muscle tone with strong emotion. She never feels paralyzed on waking or falling asleep. She rarely experiences vivid dreams upon waking or falling asleep. She never feels afraid of going to sleep. She rarely has nightmares. She occasionally recalls her dreams. She constantly has thoughts racing through her mind. She occasionally feels sad or depressed. She frequently feels anxiety. She occasionally notices parts of her body jerk. She frequently kicks during the night. She occasionally feels crawling or aching feelings in her legs. She rarely feels leg pain at night. She rarely has morning jaw pain, and frequently grinds her teeth at night. She occasionally feels bothered by pain during the day, is occasionally awakened by pain during the night. She occasionally wakes up feeling stiff in the morning, rarely wakes feeling sore or achy in the morning. She rarely awakens with pain in her neck, spine, or joints. She reports a 5 lb weight loss in the last year. She reports frequent memory and concentration problems and daytime sleepiness every day, although her Fisher was 5. She has nasal allergies, possible asthma, heartburn and anxiety. Normal bedtime is 11:00 p.m., falling asleep within 2-3 hours, waking 4 or 5 times at night. She stays awake for 20 minutes, tries to return to sleep. While awake, she goes to the bathroom, sometimes goes downstairs to read the newspaper before being sleepy enough to return to bed. She wakes between 9:00 a.m. and 10:00 a.m., reports getting 3-4 hours of sleep per night. She keeps the same schedule on weekends. She takes naps in the afternoon or evening however naps are not refreshing. She is drowsy for 3 hours after waking. She feels better in the morning and the evening compared to the afternoon. Habits:??Tobacco: Never smoker Caffeine: 1 per day Alcohol: 1 per day Recreational substances: Occasional pot gummies to get to sleep PMFSH Past Medical History Medical History Abnormal mammogram Anemia Anxiety Arthritis Broken arm Cancer, skin, squamous cell Chronic vasomotor rhinitis Depression Encounter for Routine Gynecological Examination History of Surgical History Surgical History History of surgery on arm [place] teeth removed Vince
[2024-05-12 17:48] VITALS: BMI 23.9
== END 2024-04-22 07:19 | disposition home or self-care (01) ==
LOC: ANHCSM 08:20
PROVIDERS: PCP Family Medicine; Visit Provider Family Medicine
DX: G47.10 Hypersomnia, unspecified (principal); G47.33 Obstructive sleep apnea (adult) (pediatric); G47.61 Periodic limb movement disorder; F45.8 Other somatoform disorders
CPT/HCPCS: 95810

== ENCOUNTER 2024-06-16 07:38 | Outpatient (CLI) | payer MEDICARE, SELFPAY ==
[2024-07-11 11:26] VITALS: BMI 22.6
--- NOTE | 2024-07-11 11:26 | WPDSLEEPSTUD ---
Sleep Study Date of Study: 06/15/24 Ordering Provider: Lalito Velarde DO Interpreting Physician: Lynn Rich DO Sleep Study Type: CPAP Titration Height: 1.6 m Weight: 58.06 kg Body Mass Index: 22.6 Neck Circumference (inches): 13 [place]: 5 Reason for Sleep Study Insomnia, interrupted sleep, daytime fatigue Sleep History Concepcion Briceno is a 69-year-old woman with complaints of disrupted nighttime sleep with frequent awakenings and poor daytime functioning 2 years ago she began feeling extremely tired during the day, she started taking naps but naps were not refreshing. About 6 months ago she realized that she was not sleeping well at all. She thought this was due to anemia, medications or possibly other medical problems. She has taken Ambien on and off for 6 years. 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 She is excessively sleepy during the daytime. She rarely awakens from sleep short of breath. She occasionally wakes at night with heartburn, belching or coughing.??She occasionally snores, however rarely snores loudly enough that others complain. She frequently has trouble sleeping when she has a cold. She never wakes up gasping for breath during the night. She never has breathing problems at night. She frequently sweats excessively at night. She rarely notices her heart pounding or beating irregularly during the night. She frequently falls asleep during the day. She never falls asleep involuntarily, never falls asleep while driving. She never experiences loss of muscle tone with strong emotion. She never feels paralyzed on waking or falling asleep. She rarely experiences vivid dreams upon waking or falling asleep. She never feels afraid of going to sleep. She rarely has nightmares. She occasionally recalls her dreams. She constantly has thoughts racing through her mind. She occasionally feels sad or depressed. She frequently feels anxiety. She occasionally notices parts of her body jerk. She frequently kicks during the night. She occasionally feels crawling or aching feelings in her legs. She rarely feels leg pain at night. She rarely has morning jaw pain, and frequently grinds her teeth at night. She occasionally feels bothered by pain during the day, is occasionally awakened by pain during the night. She occasionally wakes up feeling stiff in the morning, rarely wakes feeling sore or achy in the morning. She rarely awakens with pain in her neck, spine, or joints. She reports a 5 lb weight loss in the last year. She reports frequent memory and concentration problems and daytime sleepiness every day, although her [place] was 5. She has nasal allergies, possible asthma, heartburn and anxiety. Normal bedtime is 11:00 p.m., falling asleep within 2-3 hours, waking 4 or 5 times at night. She stays awake for 20 minutes, tries to return to sleep. While awake, she goes to the bathroom, sometimes goes downstairs to read the newspaper before being sleepy enough to return to bed. She wakes between 9:00 a.m. and 10:00 a.m., reports getting 3-4 hours of sleep per night. She keeps the same schedule on weekends. She takes naps in the afternoon or evening however naps are not refreshing. She is drowsy for 3 hours after waking. She feels better in the morning and the evening compared to the afternoon. Habits:??Tobacco: Never smoker Caffeine: 1 per day Alcohol: 1 per day Recreational substances: Occasional pot gummies to get to sleep PMFSH Past Medical History Medical History Abnormal mammogram Anemia Anxiety Arthritis Broken arm Cancer, skin, squamous cell Chronic vasomotor rhinitis Depression Encounter for Routine Gynecological Examination History of Surgical History Surgical History History of surgery on arm [place] teeth removed F
== END 2024-06-16 07:42 | disposition home or self-care (01) ==
LOC: ANHCSM 07:39
PROVIDERS: PCP Family Medicine; Visit Provider Family Medicine
DX: G47.33 Obstructive sleep apnea (adult) (pediatric) (principal); G47.61 Periodic limb movement disorder
CPT/HCPCS: 95811

== ENCOUNTER 2024-09-23 11:27 | Outpatient (CLI) | payer MEDICARE, SELFPAY ==
[2024-09-23 15:02] LABS: Iron 42 ug/dL (37-170)
[2024-09-23 15:04] LABS: Basophils Absolute Auto 0.1 K/mm3 (0.0-0.1); Basophils Percent Auto 1.2 % (0.2-1.2); Eosinophils Absolute Auto 0.2 K/mm3 (0-0.3); Hematocrit 35.5 % (37.0-47.0); Hemoglobin 10.9 g/dL (12.0-15.0); Immature Granulocyte Absolute 0.01 K/mm3 (0.00-0.031); Immature Granulocyte Percent A 0.2 % (0-0.5); Lymphocytes Absolute Auto 1.85 K/mm3 (0.9-3.2); Lymphocytes Percent Auto 32.8 % (18.3-44.2); Mean Corpuscular HGB Conc 30.7 g/dl (32-36); Mean Corpuscular Hemoglobin 21.9 pg (26-34); Mean Corpuscular Volume 71.4 fl (80-100); Monocytes Absolute Auto 0.8 K/mm3 (0.1-0.6); Neutrophils Absolute Auto 2.8 K/mm3 (1.3-6.7); Neutrophils Percent Auto 48.8 % (45.5-73.1); Platelet Count Result 239 k/mm3 (150-375); Red Blood Count 4.97 M/mm3 (4.2-5.4); Red Cell Distribution Width 15.9 % (11.5-14.5); White Blood Count 5.6 K/mm3 (4.5-10.0)
[2024-09-23 15:14] LABS: Percent Iron Saturation 14 % (20-50); TOTAL IRON BINDING CAPACITY 293 ug/dL (261-462)
[2024-09-23 15:31] LABS: Microcytosis 1+ (NORMAL); Ovalocytes 1+; Platelet Estimate Adequate (Adequate); Schistocytes None Seen
== END 2024-09-23 11:28 | disposition home or self-care (01) ==
LOC: ANHGOSHLAB 11:29
PROVIDERS: PCP Family Medicine; Visit Provider Family Medicine
DX: D50.9 Iron deficiency anemia, unspecified (principal); R53.83 Other fatigue
CPT/HCPCS: 36415; 83540; 83550; 85025; 85055

== ENCOUNTER 2025-02-22 11:25 | Outpatient (CLI) | payer MEDICARE, SELFPAY ==
--- OUTSIDE RECORDS SUMMARY | 2025-02-22 11:29 | XMS_ITS | Patient Health Record ---
Author Organization [facility] [place] ([address]) Address [address] [facility] [address] [place] [address] Care Team Providers Care Breakfast Host Name Role Phone Lalito Velarde Primary Care Provider UnavailSofya Nelson Unavailable [phone] ZZ-Migration, Provider Unavailable Unavailab le Allergies Allergen (clinical drug ingredient) Drug/Non Drug Allergy documented on EMR Reaction Allergy Type Onset Date Status Propofol Unknown Drug Allergy Active Reason For Referral No Information Medications Medication SIG (Take, Route, Frequency, Duration) Notes Start Date End Date Status NASAL WASHES N/A DIRECTED INTRANASALLY NEEDED for 30 DAYS *Please review for potential replacement for e-prescription and drug interaction check* Active AEROCHAMBER MDI SPACER - MOUTHPIECE (ADULT) N/A DIRECTED PO PER ASTHMA ACTION PLAN for 30 DAYS *Please review for potential replacement for e-prescription and drug interaction check* Active ALBUTEROL (EQV-PROAIR HFA) 90 MCG/INH 2 PUFF(S) INHALED EVERY 6 HOURS for 30 DAYS *Please review for potential replacement for e-prescription and drug interaction check* Active Advair HFA 115-21 MCG/ACT 2 puffs Inhalation Twice a day for 30 days Active Cetirizine HCl 10 MG 1 tab(s) orally onc e a day Active IPRATROPIUM NASAL 42 mcg/inh 2 spray(s) intranasally 3 times a day for 30 days 02/22/2024 Active ADVAIR HFA 230 mcg-21 mcg 2 puff(s) inhaled 2 times a day for 30 days 02/22/2024 Active ARNUITY ELLIPTA furoate 100 mcg 1 puff(s) inhaled every 24 hours for 30 days Active FERROUS SULFATE 325 mg 1 tab(s) orally 3 times a day Active CALCIUM 500+D 500 mg-10 mcg 1 tab(s) chewed 2 times a day Active RISEDRONATE 150 mg 1 tab(s) orally once a day Active ESCITALOPRAM 10 mg 1 tab(s) orally once a day Active OLOPATADINE NASAL 665 MCG/INH 2 SPRAY(S) INTRANASALLY 2 TIMES A DAY for 30 DAYS *Please review for potential replacement for e-prescription and drug interaction check* 01/05/2024 Active CETIRIZINE 10 mg 1 tab(s) orally once a day Active Escitalopram Oxalate 10 MG 1 tab(s) orally once a day Active Risedronate Sodium 150 MG 1 tab(s) orally once a day Active ALBUTEROL (EQV-PROAIR HFA) 90 MCG/INH 2 PUFF(S) INHALED EVERY 6 HOURS for 30 DAYS *Please review for potential replacement for e-prescription and drug interaction check* Active Ipratropium [place] 0.06 % USE 2 SPRAY(S) INTRANASALLY 3 TIMES A DAY 30 DAYS Nasally three times a day for 30 days Active Arnuity Ellipta 100 MCG/ACT 1 puff(s) inhaled every 24 hours for 30 days Active Calcium 500+D 500 MG-10 MCG 1 TAB(S) CHEWED 2 TIMES A DAY *Please review and pick correct strength-formulati on from [email or web address] options. If intended option is not shown, discontinue and re-order from Quick Search* Active Ferrous Sulfate 325 (65 Fe) MG 1 tab(s) orally 3 times a day Active Immunizations Vaccine Route Administration Date Status Comme nts Influenza Unknown 08/04/2022 Administered Portal Infor mation NOC Pneumovax 23 Unknown 11/13/2022 Administered Portal Information Social History Tobacco Use: Social History Observation Description Date Details (start date - stop date) Never Smoker NA - NA Tobacco Control (Standard) Question Answer Notes Tobacco use: Nonsmoker Problems Problem Type SNOMED Code ICD Code Onset Dates Problem Status W/U Status Risk Notes Problem Chronic allergic conjunctivitis (70868583) Other chronic allergic conjunctivitis (H10.45) Active confirmed Problem Allergic rhinitis caused by pollen (disorder) (84495709) Allergic rhinitis due to pollen (J30.1) Active confirmed Problem Allergic rhinitis (10649069) Other allergic rhinitis (J30.89) Active confirmed Problem Allergic rhinitis caused by animal hair and dander (508478740638920) Allergic rhinitis due to animal (cat) (dog) hair and dander (J30.81) Active confirmed Problem Allergy status t o other drugs, medicaments and biological substances (Z88.8) Active confirmed Problem Chronic cough (61236341) Chronic cough (R05.3) Active confirmed Encounters Encounter Location Date Provider Diagnosis [address] [address] 03/05/2024 Provider Jo Allergic rhinitis due to pollen J30.1 and Chronic cough R05.[address] [address] 03/30/2024 Sofya Murphy Allergic rhinitis due to pollen J30.1 and Chronic cough R05.3 [facility] [address] [facility] [address] [place] [address] 03/28/2024 Sofya Murphy Assessments Encounter Date Diagnosis (ICD Code) Assessment Notes Treatment Notes Treatment Clinical Notes Section Notes 03/05/2024 Allergic rhinitis due to pollen (ICD-10 - J30.1) 03/05/2024 Chronic cough (ICD-10 - R05.3) 03/30/2024 Allergic rhinitis due to pollen (ICD-10 - J30.1) 03/30/2024 Chronic cough (ICD-10 - R05.3) Plan Of Treatment No Information Insurance Providers Payer Name Payer Address Payer Phone Subscriber Number Group Number Insured Name Patient Relationship to Insured Coverage Start Date Coverage End Date [employer] (Medicare) Attention Claims [address] [place] [address] [id number] Concepcion Doan Self - patient is the insured [facility] [address] [place] [address] [id number] Concepcion Doan Self - patient is the insured Medical (General) History Medical History History ICD Code seasonal allergies osteopenia anemia rhinitis Osteoarthritis Esophageal reflux post nasal drip Surgical History Surgery Date(Month/Year) broken wrist 1966
--- OUTSIDE RECORDS SUMMARY | 2025-02-22 11:29 | XMS_ITS ---
Author Organization [employer] [facility] [place] ([address]) Address [address] [facility] [address] [place] [address] Care Team Providers Care Chef Manager Name Role Phone Lalito Velarde Primary Care Provider UnavailSofya Nelson Unavailable [phone] ZZ-Migration, Provider Unavailable Unavailab le Allergies Allergen (clinical drug ingredient) Drug/Non Drug Allergy documented on EMR Reaction Allergy Type Onset Date Status Propofol Unknown Drug Allergy Active REASON FOR VISIT [facility] Encounter Medications Medication SIG (Take, Route, [...] MCG 2 PUFF(S) INHALED 2 TIMES A DAY for 30 DAYS *Please review and pick correct strength-formulati on from [facility] options. If intended option is not shown, discontinue and re-order from Quick Search* 02/22/2024 Active Ipratropium [place] 0.06 % 2 spray(s) intranasally 3 times a day for 30 days 02/22/2024 Active Ferrous Sulfate 325 [...] every 24 hours for 30 days Active NASAL WASHES N/A DIRECTED INTRANASALLY NEEDED for 30 DAYS *Please review for potential replacement for e-prescription and drug interaction check* Active Risedronate Sodium 150 MG 1 tab(s) orally once a day Active Calcium 500+D 500 MG-10 MCG 1 TAB(S) CHEWED 2 TIMES A DAY *Please review and pick correct strength-formulati on from [employer] options. If intended option is not shown, discontinue and re-order from Quick Search* Active Encounters Encounter Location Date Provider Diagnosis [facility] [address] 03/05/2024 Provider BASIM-Bina Allergic rhinitis due to pollen J30.1 and [...] MCG 2 PUFF(S) INHALED 2 TIMES A DAY for 30 DAYS 02/22/2024 *Please review and pick correct strength-formulation from [employer] options. If intended option is not shown, discontinue and re-order from Quick Search* Ipratropium [place] 0.06 % 2 spray(s) intranasally 3 times a day for 30 days 02/22/2024 ALBUTEROL (EQV-PROAIR HFA) 90 MCG/INH 2 PUFF(S) INHALED EVERY 6 HOURS for 30 DAYS *Please review for potential replacement for e-prescription and drug interaction check* Cetirizine HCl 10 MG 1 tab(s) orally onc e a day NASAL WASHES N/A DIRECTED INTRANASALLY NEEDED for 30 DAYS *Please review for potential replacement for e-prescription and drug interaction check* Progress Notes * Liam DOANOB:1955 (70 yo F)Acc No.[id number]:03/05/2024 Patient: Concepcion RESENDEZ Provider: Emilia Curran :1955 A ge:69 Y S ex:Female Date:03/05/2024 Address:[address] [place] [address] [facility] Pcp:Lalito Velarde Subjective: * Chief Complaints: * [facility] . [facility] * Medical History: * Medications: T aking Ferrous Sulfate 325 (65 Fe) MG Tablet 1 tab(s) orally 3 times a day , Taking Calcium 500+D 500 MG-10 MCG TABLET, CHEWABLE 1 TAB(S) CHEWED 2 TIMES A DAY , Notes to Pharmacist: *Please review and pick correct [facility]ulation [facility] options. If intended option is not shown, [...] orally, once a day; S tart Ipratropium [place] Solution, 0.06 %, 2 spray(s), intranasally, 3 times a day, 30 days, 1, Refills 0. * Billing Information: * Visit Code: * Procedure Codes: * Electronic signature of Alec STALLWORTH-Migration on 02/22/2025 at 11:29 AM CDT Sign off status: Pending * Provider: Emilia rogel Migration Date: 0 03/05/2024 Generated for Devika schmidt/Mert/Timoitting on: 0 02/22/2025 11:29 AM CDT
--- OUTSIDE RECORDS SUMMARY | 2025-02-22 11:29 | XMS_ITS ---
Author Organization [facility] [place] ([address]) Address [address] [place] [address] Care Team Providers Care Damage Appraiser Name Role Phone Lalito Velarde Primary Care Provider Sofya Guerrero [phone] REASON FOR VISIT Asthma follow-up Encounters Encounter Location Date Provider Diagnosis [facility] [address] [place] [address] 04/18/2024 Sofya Murphy Plan Of Treatment No Information Progress Notes * Liam DOANOB:1955 (70 yo F)Acc No.[id number]:04/18/2024 Asthma F/U Patient: Alina HIDALGOTAVON Concepcion Provider: ELVIA Hui :1955 A ge:69 Y S ex:Female Date:04/18/2024 Address:[address] [place], [place] [address] [facility] Pcp:Lalito Velarde Subjective: * Chief Complaints: * 1 . Asthma follow-up. * Medical History: Objective: * Vitals: Assessment: Plan: * Treatment: * Billing Information: * Visit Code: * Procedure Codes: * Electronic signature of Sofya Murphy DNP, FNP-C on 02/22/2025 at 11:28 AM CDT Sign off status: Pending * Provider: ELVIA HuiP-C Date: 0 04/18/2024 Generated for Devika schmidt/Mert/Osorio on: 0 02/22/2025 11:28 AM CDT
--- OUTSIDE RECORDS SUMMARY | 2025-02-22 11:29 | XMS_ITS | Continuity of Care Document ---
Author Organization [facility] Address [address] [place] [address] Phone Care Team Providers Care Project Portfolio Analyst Name Role Phone Martha Gage MD Unavailable Unavailable Allergies, Adverse Reactions, Alerts Substance Reaction Status Criticality propofol Active No Information Advance Directives Directive Yes / No Effective Date File Name No Information Encounters Encounter Description Practice Location Reason(s) For Visit Diagnoses Date Provider Providers Copied on Encounter [facility], [address], [place], [place], [id number], tel:[phone] [facility] No Information Too Thomas. [address] [place] [address], [id number], . tel:[phone] Referring Provider: Bladimir Xie, [facility] [place], [address]. tel:[phone] [facility], [address], [place], [place], [id number], tel:[phone] [facility] No Information Too Thomas. [address] [place] [address], [id number], . tel:[phone] Family History Family Member Type Diagnosis Age At Onset No Information Payers Payer name Insurance type Covered republican ID Authoriza tion(s) BCBS INACTIVE OUT OF STATE [id number] Social History Type Description Quantity Date Captured [...]
--- OUTSIDE RECORDS SUMMARY | 2025-02-22 11:29 | XMS_ITS | Referral Summary ---
Author Organization [facility] [address] Address [address] [place] [address] Care Team Providers Care China Decorator Name Role Phone Lalito Velarde Primary Care Provider [phone] Allergies Active Allergy Reactions Criticality Noted Date Comments Oxybutynin Other (See comments) Low 12/10/2022 Heart issues Medications No known medications Active Problems No known active problems Social History Tobacco Use Types Packs/Day Years Used Date Smoking Tobacco: Never Assessed Comments Unknown Sex and Gender Information Value Date Recorded Sex Assigned at Not on file 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 Gender Identity Female 12/10/2022 11:55 AM CDT Sexual Orientation Not on file Last Filed Vital Signs Vital Sign Reading Time Taken Comments Blood Pressure 149/85 12/10/2022 7:22 PM CDT Pulse 90 12/10/2022 7:22 PM CDT Temperature 36.9 C (98.5 F) 12/10/2022 7:22 PM CDT Respiratory Rate 16 12/10/2022 7:22 PM CDT Oxygen Saturation 97% 12/10/2022 7:22 PM CDT Inhaled Oxygen Concentration - - Weight 63.5 kg (140 lb) 12/10/2022 7:22 PM CDT Height 160 cm (5' 3) 12/10/2022 7:22 PM CDT Body Mass Index 24.8 12/10/2022 7:22 PM CDT Plan of Treatment [place] [address] [facility] [place] [address] [facility] MEDIC[facility] ADV[facility]AGE Care Teams China Decorator Relationship Specialty Start Date End Date Lalito Velarde DO PCP - General Family Medicine 12/10/22
--- OUTSIDE RECORDS SUMMARY | 2025-02-22 11:29 | XMS_ITS | Clinical Summary ---
Author Organization [facility] [address] Address [address] [place] [address] Care Team Providers Care Driver/Refuse Collector Name Role Phone Lalito Velarde Primary Care Provider [phone] Allergies Active Allergy Reactions Criticality Noted Date Comments Oxybutynin Other (See comments) Low 12/10/2022 Heart issues Medications No known medications Active Problems No known active problems Social History Tobacco Use Types Packs/Day Years Used Date Smoking Tobacco: Never Assessed Comments Unknown Sex and Gender Information Value Date Recorded Sex Assigned at Not on file 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 Gender Identity Female 12/10/2022 11:55 AM CDT Sexual Orientation Not on file Obstetrics History Last Filed Vital Signs Vital Sign Reading [...] 12/10/2022 7:22 PM CDT Plan of Treatment Health Maintenance Due Date Last Done Comments Breast Cancer Screening-Mammogram 1955 Colon Cancer Screening-Colonoscopy 1955 Depression Screening 1955 Fall Risk Assessment 1955 Hepatitis C Screening 1955 Osteoporosis Screening-Bone Density Scan 1955 DTaP/Tdap/Td Vaccine (1 - Tdap) 02/14/1967 Hepatitis B Screening 02/14/1974 Pneumococcal vaccine 65+ (1 of 1 - PCV) 02/14/2006 Zoster Vaccine (1 of 2) 02/14/2006 Well Visit 65+ 02/14/2021 Influenza Vaccine (Season Ended) [address] [place] [address] [facility] Address: [address] [address] [place] [address] [place] [address] [facility] Address: [address] [address] [place] [address] Care Teams Driver/Refuse Collector Relationship Specialty Start Date End Date Lalito Velarde DO PCP - General Family Medicine 12/10/22
--- OUTSIDE RECORDS SUMMARY | 2025-02-22 11:29 | XMS_ITS | Clinical Summary ---
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 Gender Identity Not on file Sexual Orientation Not on file Plan of Treatment Health Maintenance Due Date Last Done Comments DEXA Bone Density 1955 Hepatitis C Virus (HCV) Screening 1955 TdaP Immunization 1955 Colonoscopy 02/14/2001 Colorectal Cancer Screening 02/14/2001 Cologuard 02/14/2006 Immunochemical Fecal Occult Blood 02/14/2006 Mammogram 02/14/2006 Pneumococcal Immunization (5 0+ years) (1 of 1 - PCV) 02/14/2006 Zoster Immunization (1 of 2) 02/14/2006 Influenza Immunization (#1) 05/22/202408/21, 08/30/2019, 09/30/2014 SARS-COV-2 Immunization ( season) 2024 06/30/2021, 12/24/2020, 12/03/2020 Respiratory Syncytial Virus (RSV) Immunization (Adult) (1 - 1-dose 75+ series) 02/14/2031 Hepatitis B Immunization Aged Out No longer eligible based on patient's age to complete this topic Meningococcal Immunization (ACWY) Aged Out No longer eligible b ased on patient's age to complete this topic Rotavirus Immunization Aged Out No lo nger eligible based on patient's age to complete this topic
[2025-02-22 21:17] LABS: Vitamin D 25 Hydroxy 25.5 ng/mL
[2025-02-22 21:21] LABS: Cholesterol 201 mg/dL (0-200); HDL Direct 57 mg/dL; Triglycerides 76 mg/dL (<150)
[2025-02-22 21:32] LABS: LDL Cholesterol Direct 116 mg/dL
== END 2025-02-22 11:26 | disposition home or self-care (01) ==
LOC: ANHGOSHLAB 11:26
PROVIDERS: PCP Nurse Practitioner Family; Visit Provider Nurse Practitioner Family
DX: E78.5 Hyperlipidemia, unspecified (principal); E55.9 Vitamin D deficiency, unspecified
CPT/HCPCS: 36415; 80061; 82306

== ENCOUNTER 2025-05-17 14:20 | Outpatient (CLI) | payer MEDICARE, SELFPAY ==
--- OUTSIDE RECORDS SUMMARY | 2016-02-14 19:00 | XMS_ITS | Continuity of Care Document ---
Author Organization [facility] Address [address] [place] [address] Phone Care Team Providers Care Tool Carrier Name Role Phone Martha Gage MD Unavailable Unavailable Allergies, Adverse Reactions, Alerts Substance Reaction Status Criticality propofol Active No Information Advance Directives Directive Yes / No Effective Date File Name No Information Encounters Encounter Description Practice Location Reason(s) For Visit Diagnoses Date Provider Providers Copied on Encounter [facility], [address], [place], [place], [id number], tel:[phone] [facility] No Information Too Thomas. [address] [place] [address], [id number], . tel:[phone] Referring Provider: Bladimir Xie, [facility] [place], [address]. tel:[phone] [facility], [address], [place], [place], [id number], tel:[phone] [facility] No Information Too Thomas. [address] [place] [address], [id number], . tel:[phone] Family History Family Member Type Diagnosis Age At Onset No Information Payers Payer name Insurance type Covered democrat ID Authoriza tion(s) BCBS INACTIVE OUT OF STATE [id number] Social History Type Description Quantity Date Captured Comments Sex Female Smoking Status No Information Chief Complaint And Reason For Visit No Information Reason For Referral Reason For Referral No Information History Of Present Illness Encounter Date Complaint History Of Prese nt Illness No Information Functional Status Date Functional Assessmen t No Information Instructions Date Instruction Additional Infor mation No Information Assessments Type Assessment Date No Information Patient Care Teams Name Effective Dates (start - stop) Status Members No Information
--- OUTSIDE RECORDS SUMMARY | 2024-03-05 16:30 | XMS_ITS ---
Author Organization [facility] [place] ([address]) Address [address] [facility] [address] [place] [address] Care Team Providers Care Flight Hostess Name Role Phone Lalito Velarde Primary Care Provider UnavailSofya Nelson Unavailable [phone] ZZ-Migration, Provider Unavailable Unavailab le Allergies Allergen (clinical drug ingredient) Drug/Non Drug Allergy documented on EMR Reaction Allergy Type Onset Date Status Propofol Unknown Drug Allergy Active REASON FOR VISIT Multum To [facility] Conversion Encounter Medications Medication SIG (Take, Route, Frequency, Duration) Notes Start Date End Date Status AEROCHAMBER MDI SPACER - MOUTHPIECE (ADULT) N/A DIRECTED PO PER ASTHMA ACTION PLAN; Duration: 30 DAYS *Please review for potential replacement for e-prescription and drug interaction check* Active ALBUTEROL (EQV-PROAIR HFA) 90 MCG/INH 2 PUFF(S) INHALED EVERY 6 HOURS; Duration: 30 DAYS *Please review for potential replacement for e-prescription and drug interaction check* Active Advair HFA 230 MCG-21 MCG 2 PUFF(S) INHALED 2 TIMES A DAY; Duration: 30 DAYS *Please review and pick correct strength-formulati on from [facility] options. If intended option is not shown, discontinue and re-order from Quick Search* 02/22/2024 Active Ipratropium [place] 0.06 % 2 spray(s) intranasally 3 times a day; Duration: 30 days 02/22/2024 Active Ferrous Sulfate 325 (65 Fe) MG 1 tab(s) orally 3 times a day Active OLOPATADINE NASAL 665 MCG/INH 2 SPRAY(S) INTRANASALLY 2 TIMES A DAY; Duration: 30 DAYS *Please review for potential replacement for e-prescription and drug interaction check* 01/05/2024 Active Escitalopram Oxalate 10 MG 1 tab(s) orally once a day Active ALBUTEROL (EQV-PROAIR HFA) 90 MCG/INH 2 PUFF(S) INHALED EVERY 6 HOURS; Duration: 30 DAYS *Please review for potential replacement for e-prescription and drug interaction check* Active Cetirizine HCl 10 MG 1 tab(s) orally onc e a day Active Arnuity Ellipta 100 MCG/ACT 1 puff(s) inhaled every 24 hours; Duration: 30 days Active NASAL WASHES N/A DIRECTED INTRANASALLY NEEDED; Duration: 30 DAYS *Please review for potential replacement for e-prescription and drug interaction check* Active Risedronate Sodium 150 MG 1 tab(s) orally once a day Active Calcium 500+D 500 MG-10 MCG 1 TAB(S) CHEWED 2 TIMES A DAY *Please review and pick correct strength-formulati on from [employer] options. If intended option is not shown, discontinue and re-order from Quick Search* Active Encounters Encounter [facility] Date [facility] [address] [facility] Provider Jo Allergic rhinitis due to pollen J30.1 and Chronic cough R05.3 Assessments Encounter Date Diagnosis (ICD Code) Assessment Notes Treatment Notes Treatment Clinical Notes Section Notes 03/05/2024 Allergic rhinitis due to pollen (ICD-10 - J30.1) 03/05/2024 Chronic cough (ICD-10 - R05.3) Plan Of Treatment Medication Medication Name Sig Start Date Stop Date Notes AEROCHAMBER MDI SPACER - MOUTHPIECE (ADULT) N/A DIRECTED PO PER ASTHMA ACTION PLAN; Duration: 30 DAYS *Please review for potential replacement for e-prescription and drug interaction check* Advair HFA 230 MCG-21 MCG 2 PUFF(S) INHALED 2 TIMES A DAY; Duration: 30 DAYS 02/22/2024 *Please review and pick correct strength-formulation from [employer] ([employer] options. If intended option is not shown, discontinue and re-order from Quick Search* Ipratropium [place] 0.06 % 2 spray(s) intranasally 3 times a day; Duration: 30 days 02/22/2024 ALBUTEROL (EQV-PROAIR HFA) 90 MCG/INH 2 PUFF(S) INHALED EVERY 6 HOURS; Duration: 30 DAYS *Please review for potential replacement for e-prescription and drug interaction check* Cetirizine HCl 10 MG 1 tab(s) orally onc e a day NASAL WASHES N/A DIRECTED INTRANASALLY NEEDED; Duration: 30 DAYS *Please review for potential replacement for e-prescription and drug interaction check* Progress Notes * Liam DOANOB:1955 (70 yo F)Acc No.[id number]:03/05/2024 Patient: Concepcion RESENDEZ Provider: Emilia Curran :1955 A ge:69 Y S ex:Female Date:03/05/2024 Address:[address] [place] [address] [facility] Pcp:Lalito Velarde Subjective: * Chief Complaints: * 1 . Multum To [facility] Conversion Encounter. * Medical History: * Medications: T aking Ferrous Sulfate 325 (65 Fe) MG Tablet 1 tab(s) orally 3 times a day , Taking Calcium 500+D 500 MG-10 MCG TABLET, CHEWABLE 1 TAB(S) CHEWED 2 TIMES A DAY , Notes to Pharmacist: *Please review and pick correct strength-formulation from [employer] options. If intended option is not shown, discontinue and re-order from Quick Search*, Taking Risedronate Sodium 150 MG Tablet 1 tab(s) orally once a day , Taking Escitalopram Oxalate 10 MG Tablet 1 tab(s) orally once a day , Taking OLOPATADINE NASAL 665 MCG/INH SPRAY 2 SPRAY(S) INTRANASALLY 2 TIMES A DAY , Notes to Pharmacist: *Please review for potential replacement for e-prescription and drug interaction check*, Taking Arnuity Ellipta 100 MCG/ACT Aerosol Powder Breath Activated 1 puff(s) inhaled every 24 hours , Taking ALBUTEROL (EQV-PROAIR HFA) 90 MCG/INH AEROSOL 2 PUFF(S) INHALED EVERY 6 HOURS , Notes to Pharmacist: *Please review for potential replacement for e-prescription and drug interaction check* * Allergies: P ropofol. Objective: * Vitals: Assessment: * Assessment: 1. C hronic cough - R05.3 (Primary) 2 . A llergic rhinitis due to pollen - J30.1 Plan: * Treatment: 2. A llergic rhinitis due to pollen Continue NASAL WASHES 1 QUART OF STERILIZED TAP WATER OR DISTILLED WATER, 1 TSP NACL, 1 PINCH OF BAKING SODA, N/A, DIRECTED, INTRANASALLY, NEEDED, 30 DAYS, Refills 0, Notes to Pharmacist: *Please review for potential replacement for e-prescription and drug interaction check*; C ontinue Cetirizine HCl Tablet, 10 MG, 1 tab(s), orally, once a day; S tart Ipratropium [place] Solution, 0.06 %, 2 spray(s), intranasally, 3 times a day, 30 days, 1, Refills 0. * Billing Information: * Visit Code: * Procedure Codes: * Electronic signature of Alec STALLWORTH-Migration on 05/17/2025 at 02:25 PM CDT Sign off status: Pending * Provider: Emilia rogel Migration Date: 0 03/05/2024 Generated for Devika schmidt/Mert/Timoitting on: 0 05/17/2025 02:25 PM CDT
--- OUTSIDE RECORDS SUMMARY | 2024-04-18 12:30 | XMS_ITS ---
Author Organization [facility] [place] ([address]) Address [address] [place] [address] Care Team Providers Care Service Tech/Welder Name Role Phone Lalito Velarde Primary Care Provider Sofya Guerrero [phone] REASON FOR VISIT Asthma follow-up Encounters Encounter Location Date Provider Diagnosis [facility] [address] [place] [address] 04/18/2024 Sofya Murphy Plan Of Treatment No Information Progress Notes * Liam DOANOB:1955 (70 yo F)Acc No.[id number]:04/18/2024 Asthma F/U Patient: Alina HIDALGOTAVON Concepcion Provider: ELVIA Hui :1955 A ge:69 Y S ex:Female Date:04/18/2024 Address:[address] [place], [place] [address] [id number] Pcp:Lalito Velarde Subjective: * Chief Complaints: * 1 . Asthma follow-up. * Medical History: Objective: * Vitals: Assessment: Plan: * Treatment: * Billing Information: * Visit Code: * Procedure Codes: * Electronic signature of Sofya Murphy DNP, FNP-C on 05/17/2025 at 02:24 PM CDT Sign off status: Pending * Provider: ELVIA HuiP-C Date: 0 04/18/2024 Generated for Devika schmidt/Mert/Osorio on: 0 05/17/2025 02:24 PM CDT
--- OUTSIDE RECORDS SUMMARY | 2025-05-17 13:30 | XMS_ITS | Encounter Summary ---
Author Organization [facility] Address [address] [place] [address] Care Team Providers Care Family Assessment Worker Name Role Phone Unavailable Primary Care Provider Unavailabl e Encounter Details Date Type Department Care Team (Late st Contact Info) Description 05/17/2025 1:30 PM CDT Office Visit [facility] - [address] [place] [address] Ratna Albarado MD [address] [place] [address] Microcytic anemia (Primary Dx); Chronic anemia; Restless leg syndrome Social History Tobacco Use Types Packs/Day Years Used Date Smoking Tobacco: Never Smokeless Tobacco: Never Tobacco Cessation:Counseling Given: Not Answered Alcohol Use Standard Drinks/Week Comments Yes 0 (1 standard drink = 0.6 oz pur e alcohol) Everyday Comments Unknown Sex and Gender Information Value Date Recorded Sex Assigned at Not on file Legal Sex Female 3:46 PM CDT Gender Identity Not on file Sexual Orientation Not on file documented as of this encounter Last Filed Vital Signs Vital Sign Reading Time Taken Comments Blood Pressure 147/77 05/17/2025 1:15 PM CDT Pulse 76 05/17/2025 1:13 PM CDT Temperature 36.6 C (97.8 F) 05/17/2025 1:13 PM CDT Respiratory Rate 16 05/17/2025 1:13 PM CDT Oxygen Saturation 96% 05/17/2025 1:13 PM CDT Inhaled Oxygen Concentration - - Weight 58.7 kg (129 lb 6.4 oz) 05/17/2025 1:13 P M CDT Height 160 cm (5' 3) 05/17/2025 1:13 PM CDT Body Mass Index 22.92 05/17/2025 1:13 PM CDT documented in this encounter Plan of Treatment Upcoming Encounters Date Type Department Care Team (Late st Contact Info) Description 06/14/2025 4:30 PM CDT Telephone Check Up [facility] - [place] [address] [facility] [address] [place] [address] Rick Contreras MD [address] [facility] [address] [place] [address] Scheduled Orders Name Type Priority Associated Diagnoses Orde r Schedule CBC WITH DIFFERENTIAL Lab Stat Microcytic anemia Expected: 05/17/2025, Expires: 05/17/2026 IRON, TIBC, AND PERCENT SATURATION Lab Routine Microcytic anemia Expected: 05/17/2025, Expires: 05/17/2026 FERRITIN Lab Routine Microcytic anemia Expected: 05/17/2025, Expires: 05/17/2026 PROTEIN ELECTROPHORESIS W/REFLEX,SERUM Lab Routine Chronic anemia Expected: 05/17/2025, Expires: 05/17/2026 KAPPA/LAMBDA, FREE LIGHT CHAINS Lab Routine Chronic anemia Expected: 05/17/2025, Expires: 05/17/2026 VITAMIN B12 LEVEL Lab Routine Chronic anemia Expected: 05/17/2025, Expires: 05/17/2026 HEMOGLOBIN ELECTROPHORESIS Lab Routine Microcytic anemia Expected: 05/17/2025, Expires: 05/17/2026 documented as of this encounter Visit Diagnoses Diagnosis Microcytic anemia- Primary Iron deficiency anemia, unspecified Chronic anemia Anemia, unspecified Restless leg syndrome Restless legs syndrome (RLS) documented in this encounter
--- OUTSIDE RECORDS SUMMARY | 2025-05-17 14:24 | XMS_ITS | Clinical Summary ---
Author Organization [facility] Address [address] [place] [address] Care Team Providers Care Roustabout Pusher Name Role Phone Unavailable Primary Care Provider Unavailabl e Allergies Active Allergy Reactions Criticality Noted Date Comments Propofol Other (See Comments) High 01/10/2025 patient thinks her heart stopped Medications doxycycline hyclate (VIBRAMYCIN) 20 mg Tablet Take 1 Tablet by mouth daily. Active escitalopram oxalate (LEXAPRO) 10 mg tablet Take 10 mg by mouth daily. Active risedronate (ACTONEL) 150 mg Tablet Take 150 mg by mouth every 30 days. Active zolpidem (AMBIEN) 10 mg tablet Take 10 mg by mouth nightly as needed. Active CALCIUM CARBONATE ORAL Take 500 mg by mouth 2 times daily. Active cetirizine (ZyrTEC) 10 mg tablet Take 10 mg by mouth daily. Active cholecalciferol , Vitamin D3, 125 mcg (5,000 unit) Capsule Take 5,000 Units by mouth daily. Active famotidine (PEPCID) 20 mg tablet Take 20 mg by mouth 2 times daily. Active ferrous sulfate 325 mg (65 mg iron) tablet Take 325 mg by mouth daily. Active fluticasone propionate (FLOVENT HFA) 110 mcg/actuation HFA Aerosol Inhaler Take by inhalation 2 times daily. Active magnesium OXIDE 250 mg magnesium Tablet Take by mouth. Activ e Active Problems Problem Noted Date Diagnosed Date Microcytic anemia 05/17/2025 Chronic anemia 05/17/2025 Restless leg syndrome 05/17/2025 Encounters Date Type Department Care Team Description 05/17/2025 1:30 PM CDT Office Visit [facility] - [place] [address] [place] [address] Ratna Albarado MD Microcytic anemia (Primary Dx); Chronic anemia; Restless leg syndrome from Last 3 Months Family History Medical History Relation Name Comments Heart Disease Brother Skin Cancer Brother Lung Cancer Father Breast Cancer Mother Diabetes Mother Heart Disease Mother Heart Disease Sister Relation Name Status Comments Brother Alive Father Mother Sister Alive Social History Tobacco Use Types Packs/Day Years [...] on file Sexual Orientation Not on file Last Filed [...] Mass Index 22.92 05/17/2025 1:13 PM CDT Plan of Treatment Upcoming Encounters Date Type Department Care Team (Late st Contact Info) Description 06/14/2025 4:30 PM CDT Telephone Check Up [facility] - [place] [address] [place] [address] Rick Contreras MD [address] [facility] [employer] [address] [place] [address] Health Maintenance Due Date Last Done Comments DTAP/TDAP/TD VACCINES (1 - Tdap) 02/14/1975 Traditional Medicare (ACO) A nnual Wellness Visit 02/14/1975 BREAST CANCER SCREENING 1996 COLORECTAL SCREENING 02/14/2001 Colorectal Cancer Screening 02/14/2001 FIT-DNA Q 3 years 02/14/2001 FIT/FOBT Q 1 year 02/14/2001 Flex Sig/CT Colonography Q 5 years 02/14/2001 OSTEOPOROSIS SCREENING 02/14/2021 ZOSTER VACCINE (3 of 3) 06/09/2023 04/14/2023, 11/12 COVID-19 Vaccine (8 - 2023-2 5 season) 2024 08/10/2024, 08/08/2023, 08/04/2022, Additional history exists INFLUENZA VACCINE (#1) 2025 , 08/04/2022, 08/04/2022, Additional history exists RSV VACCINE (60+ or ) (1 - 1-dose 75+ series) 02/14/2031 PNEUMOCOCCAL VACCINE 50+ YEARS Completed 11/13/2022 , 10/21/2017 [place] [address] MEDICARE PART A AND B [facility] [id number]
--- OUTSIDE RECORDS SUMMARY | 2025-05-17 14:25 | XMS_ITS | Patient Health Record ---
Author Organization [facility] Address [facility] [place] [address] Care Team Providers Care Head Field Hockey Coach Name Role Phone Darrel Baumann [phone] Allergies Allergen (clinical drug ingredient) Drug/Non Drug Allergy documented on EMR Reaction Allergy Type Onset Date Status propofol propafol (uncoded) Unknown Allergy A ctive Reason For Referral No Information Medications Medication SIG (Take, Route, Fr equency, Duration) Notes Start Date End Date Status Calcium 500+D Active Iron Active Wellbutrin 100 mg 1 tab(s) orally 2 times a day Active Flonase 50 mcg/inh 1 spray(s) intranasa lly once a day Active Vitamin B-100 Active zolpidem Active busPIRone Active Ambien 10 mg 1 tab(s) orally once a day (at bedtime) Active Lexapro 5 mg 2 tab(s) orally once a day Active escitalopram Active Actonel Active Immunizations Vaccine Route Administration Date Status Comme nts Influenza Unknown 02/21/2019 Refused Pneumococcal Unknown 08/20/2016 Pending Influenza Unknown 08/20/2016 Pending Social History Tobacco Use: Social History Observation Description Date Details (start date - stop date) Never Smoker NA - NA Smoking Question Answer Notes Status: never smoked Alcohol Question Answer Notes Did you have a drink contain ing alcohol in the past year? Yes How often did you have six o r more drinks on one occasion in the past year? Daily or almost daily (4 points) how many drink did you have on a typical day when you were drinking in the past year? 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 confirmed Problem Lentigo (116943813) Lentigo (709.09) Active confirmed Problem Scar of skin (91378807) Scar of skin NOS (709.2) Active confirmed Problem Seborrheic keratosis (18757965) Seborrheic Keratosis (702.19) Active confirmed Problem Actinic keratosis (245454) Actinic Keratosis (702.0) Active confirmed Problem Verruca vulgaris (17868196) Verruca Vulgaris (078.10) Active confirmed Problem Owens angioma (0696773) Owens angioma (448.1) Active confirmed Problem Epidermal inclusion cyst (619148290) Epidermal inclusion cyst (706.2) Active confirmed Problem Benign neoplasm of skin (34699682) Benign neoplasm of other specified sites of skin (216.8) Active confirmed Problem Actinic keratosis (694807) Actinic keratosis (L57.0) Active confirmed Problem Neoplastic disease of uncertain behavior (726449708) Neoplasm of unspecified behavior of bone, soft tissue, and skin (D49.2) Active confirmed Problem Seborrheic keratosis (92115838) Seborrheic keratosis (L82.1) Active confirmed Problem Squamous cell carcinoma (601080867) Squamous cell carcinoma (C80.1) Active confirmed Problem Epidermal inclusion cyst (482234049) Epidermal inclusion cyst (L72.0) Active confirmed Problem Eruptive melanocytic nevi (786661725) Benign nevus of skin (D22.9) Active confirmed Problem Owens angioma (0151629) Owens angioma (D18.01) Active confirmed Plan Of Treatment Pending Test Test Name Order Date Dermatopathology: [facility] 10/01/2017 Insurance Providers Payer Name Payer Address Payer Phone Subscriber Number Group Number Insured Name Patient Relationship to Insured Coverage Start Date Coverage End Date [place] P[place] [address] [place] [phone] [id number] Concepcion Doan Self - patient is the insured Medical (General) History Medical History History ICD Code Inv SCC Actinic Keratosis Surgical History Surgery Date(Month/Year) Mohs to treat Inv SCC right lateral keyonnag h
--- OUTSIDE RECORDS SUMMARY | 2025-05-17 14:25 | XMS_ITS | Clinical Summary ---
Author Organization 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 Gender Identity Not on file Sexual Orientation Not on file Plan of Treatment Health Maintenance Due Date Last Done Comments Hepatitis C Virus (HCV) Screening 1955 TdaP Immunization 1955 Cologuard 02/14/2001 Colonoscopy 02/14/2001 Colorectal Cancer Screening 02/14/2001 Immunochemical Fecal Occult Blood 02/14/2001 Pneumococcal Immunization (5 0+ years) (1 of 1 - PCV) 02/14/2006 Zoster Immunization (1 of 2) 02/14/2006 SARS-COV-2 Immunization ( - season) 2024 06/30/2021, 12/24/2020, 12/03/2020 Influenza Immunization (#1) 05/22/202508/21, 08/30/2019, 09/30/2014 Respiratory Syncytial Virus (RSV) Immunization (Adult) (1 - 1-dose 75+ series) 02/14/2031 Hepatitis B Immunization Aged Out No longer eligible based on patient's age to complete this topic Human Papillomavirus (HPV) Immunization Aged Out No longer eligible b ased on patient's age to complete this topic Meningococcal Immunization (ACWY) Aged Out No longer eligible b ased on patient's age to complete this topic Rotavirus Immunization Aged Out No lo nger eligible based on patient's age to complete this topic
--- OUTSIDE RECORDS SUMMARY | 2025-05-17 14:25 | XMS_ITS | Clinical Summary ---
Author Organization [facility] [address] Address [address] [place] [address] Care Team Providers Care Electrical Assembly Supervisor Name Role Phone Lalito Velarde Primary Care Provider [phone] Allergies Active Allergy Reactions Criticality Noted Date Comments Oxybutynin Other (See comments) Low 12/10/2022 Heart issues Medications No known medications Active Problems No known active problems Social History Tobacco Use Types Packs/Day Years Used Date Smoking Tobacco: Never Assessed Comments Unknown Sex and Gender Information Value Date Recorded Sex Assigned at Not on file 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 Gender Identity Female 12/10/2022 11:55 AM CDT [...] 02/14/2006 Well Visit 65+ 02/14/2021 Influenza Vaccine (#1) [address] [place] [address] [facility] Address: [address] [address] [place] [address] [place] [address] [facility] Address: [address] [address] [place] [address] Care Teams Electrical Assembly Supervisor Relationship Specialty Start Date End Date Lalito Velarde DO PCP - General Family Medicine 12/10/22
--- OUTSIDE RECORDS SUMMARY | 2025-05-17 14:25 | XMS_ITS | Patient Health Record ---
Author Organization [facility] [place] ([address]) Address [address] [facility] [address] [place] [address] Care Team Providers Care Banking And Finance Instructor Name Role Phone Lalito Velarde Primary Care Provider Sofya Guerrero [phone] Allergies Allergen (clinical drug ingredient) Drug/Non Drug Allergy documented on EMR Reaction Allergy Type Onset Date Status Propofol Unknown Drug Allergy Active Reason For Referral No Information Medications Medication SIG (Take, Route, Frequency, Duration) Notes Start Date End Date Status NASAL WASHES N/A DIRECTED INTRANASALLY NEEDED; Duration: [...] 115-21 MCG/ACT 2 puffs Inhalation Twice a day; Duration: 30 days Active Cetirizine HCl 10 MG 1 tab(s) orally onc e a day Active IPRATROPIUM NASAL 42 mcg/inh 2 spray(s) intranasally 3 times a day; Duration: 30 days 02/22/2024 Active ADVAIR HFA 230 mcg-21 mcg 2 puff(s) inhaled 2 times a day; Duration: 30 days 02/22/2024 Active ARNUITY ELLIPTA furoate 100 mcg 1 puff(s) inhaled every 24 hours; Duration: 30 days Active FERROUS SULFATE 325 mg [...] e-prescription and drug interaction check* Active Ipratropium [place] 0.06 % USE 2 SPRAY(S) INTRANASALLY 3 TIMES A DAY 30 DAYS Nasally three times a day; Duration: 30 days Active Arnuity Ellipta 100 MCG/ACT 1 puff(s) inhaled every 24 hours; Duration: 30 days Active Calcium 500+D 500 MG-10 MCG 1 TAB(S) CHEWED 2 TIMES A DAY *Please review and pick correct strength-formulati on from Vint options. If intended option is not shown, discontinue and re-order from Quick Search* Active Ferrous Sulfate 325 (65 Fe) MG 1 tab(s) orally 3 times a day Active Immunizations Vaccine Route Administration Date Status Comme nts NOC Pneumovax 23 Unknown 11/13/2022 Administered Portal Information Influenza Unknown 08/04/2022 Administered Portal Infor mation Social History Tobacco Use: Social History Observation Description Date Details (start date - stop date) Never Smoker NA - NA Tobacco Control (Standard) Question Answer Notes Tobacco use: Nonsmoker Problems Problem Type SNOMED Code ICD Code Onset Dates Problem Status W/U Status Risk Notes Problem Chronic allergic conjunctivitis (10296336) Other chronic allergic conjunctivitis (H10.45) Active confirmed Problem Allergic rhinitis caused by pollen (disorder) (19381076) Allergic rhinitis due to pollen (J30.1) Active confirmed Problem Allergic rhinitis (11282728) Other allergic rhinitis (J30.89) Active confirmed Problem Allergic rhinitis caused by animal hair and dander (946578444306249) Allergic rhinitis due to animal (cat) (dog) hair and dander (J30.81) Active confirmed Problem Allergy status t o other drugs, medicaments and biological substances (Z88.8) Active confirmed Problem Chronic cough (17871530) Chronic cough (R05.3) Active confirmed Plan Of Treatment No Information Insurance Providers Payer Name Payer Address Payer Phone Subscriber Number Group Number Insured Name Patient Relationship to Insured Coverage Start Date Coverage End Date [employer] (Medicare) Attention Claims [address] [place] [address] [id number] Concepcion Doan Self - patient is the insured [facility] [address] [place] [address] [id number] Concepcion Doan Self - patient is the insured Medical (General) History Medical History History ICD Code seasonal allergies osteopenia anemia rhinitis Osteoarthritis Esophageal reflux post nasal drip Surgical History Surgery Date(Month/Year) broken wrist 1965
[2025-05-17 14:59] LABS: Hematocrit 38.5 % (37.0-47.0); Hemoglobin 12.0 g/dL (12.0-15.0); Immature Granulocyte Percent A 0.1 % (0-0.5); Immature Platelet Fraction Pct 6.1 % (0.9-11.2); Lymphocytes Absolute Auto 1.50 K/mm3 (0.9-3.2); Mean Corpuscular HGB Conc 31.2 g/dl (32-36); Mean Corpuscular Hemoglobin 21.7 pg (26-34); Mean Corpuscular Volume 69.7 fl (80-100); Nucleated Red Blood Cells Absolute Auto 0.000 K/mm3 (0.0-0.012); Nucleated Red Blood Cells Perc 0.0 % (0.0-0.2); Platelet Count Result 273 k/mm3 (150-375); Red Blood Count 5.52 M/mm3 (4.2-5.4); White Blood Count 7.6 K/mm3 (4.5-10.0)
[2025-05-17 18:10] LABS: Iron 85 ug/dL (37-170)
[2025-05-17 18:22] LABS: Percent Iron Saturation 30 % (20-50)
[2025-05-17 18:45] LABS: Ferritin 75.70 ng/mL (11.1-264)
[2025-05-17 19:00] LABS: Vitamin B12 418.0 pg/mL (239-931)
[2025-05-18 14:08] LABS: Albumin 3.7 g/dL (2.9-4.4); Alpha-1-Globulin 0.2 g/dL (0.0-0.4); Alpha-2-Globulin 0.8 g/dL (0.4-1.0); Gamma Globulin 0.8 g/dL (0.4-1.8)
[2025-05-18 16:08] LABS: Free Lambda Lt Chains, Serum 11.3 mg/L (5.7-26.3); Kappa/Lambda Ratio, Serum 1.14 (0.26-1.65)
== END 2025-05-17 14:21 | disposition home or self-care (01) ==
LOC: ANHLAB 14:21
PROVIDERS: PCP Nurse Practitioner Family; Visit Provider Internal Medicine
DX: D50.9 Iron deficiency anemia, unspecified (principal); D64.9 Anemia, unspecified
CPT/HCPCS: 36415; 82607; 82728; 83021; 83521; 83540; 83550; 84155; 84165; 85025; 85055

== ENCOUNTER 2025-08-07 14:59 | Outpatient (CLI) | payer MEDICARE, SELFPAY ==
--- NOTE | ~2025-08-07 | MM_ITS ---
EXAMINATION: MM screening fred BI w josue HISTORY: Screening TECHNIQUE: Craniocaudal and mediolateral oblique 3-D tomosynthesis images were obtained and synthetic 2-D images were generated. CAD analysis was submitted and interpreted. COMPARISON: Comparison to multiple prior studies sequentially, with oldest reviewed study dated , 10/25/2020 BREAST PARENCHYMAL COMPOSITION: Not Dense: There are scattered areas of fibroglandular density. FINDINGS: There is no evidence of suspicious mass, calcification, or architectural distortion to suggest malignancy in either breast. IMPRESSION: 1. No mammographic evidence of malignancy. 2. Recommend routine screening mammography in one year. BI-RADS Category 1: Negative Reviewed, dictated and finalized at location B. [place] MEDIA MANAGER
--- NOTE | ~2025-08-07 | DEXA_ITS ---
Bone Density Report Name: ARMANDO ESQUIVEL Age: 70 Sex: Female Ethnicity: White Date of : 1955 Indication: postmenopausal; screening for osteoporosis; Referring Provider: SILVIO PATHAK Study: Bone densitometry was performed. Exam Date: August 07, 2025 Accession number: [id number] Bone Density: Region BMD T-score Z-score Classification AP Spine(L1-L4) 0.809 -2.2 -0.1 Osteopenia Femoral Neck (Left) 0.585 -2.4 -0.6 Osteopenia Total Hip (Left) 0.723 -1.8 -0.3 Osteopenia Femoral Neck (Right) 0.616 -2.1 -0.3 Osteopenia Total Hip (Right) 0.662 -2.3 -0.8 Osteopenia Total Hip Mean 0.693 -2.1 -0.6 Osteopenia World Health Organization criteria for BMD impression classify patients as: Normal (T-score at or above -1.0), Osteopenia (T-score between -1.0 and -2.5), or Osteoporosis (T-score at or below -2.5). 10-year Fracture Risk(1): Major Osteoporotic Fracture 13% Hip Fracture 3.0% Reported Risk Factors: [place] (), Neck BMD=0.585, BMI=23.0 (1) FRAX(R) Version 3.08. Fracture probability calculated for an untreated patient. Fracture probability may be lower if the patient has received treatment. Impression: The patient has low bone mass, based on the Left Femoral Neck T-score. The patient has an estimated ten-year risk of hip fracture of 3% and an estimated ten-year risk of major fracture of 13%, based on the WHO FRAX algorithm. Discussion: BONE DENSITY IS LOW AT ONE OR MORE SKELETAL SITES. THE PATIENT'S BMD AND CLINICAL RISK FACTORS CONTRIBUTE TO THIS PATIENT'S INCREASED RISK OF FRACTURE. This patient's lowest T-score is low at one or more skeletal sites. It meets the World Health Organization's (WHO) criteria for ?low bone mass? (T-score between -1.0 and -2.5). The patient's 10-year risk of hip fracture as calculated by FRAX exceeds the threshold where pharmacological therapy is recommended by the National Osteoporosis Foundation (NOF). However, all treatment decisions require clinical judgment and consideration of individual patient factors, including patient preferences, comorbidities, previous drug use, risk factors not captured in the FRAX model (e.g., frailty, falls, vitamin D deficiency, increased bone turnover, interval significant decline in bone density) and possible under or overestimation of fracture risk by FRAX. The patient should follow a healthful lifestyle (good nutrition with adequate calcium and vitamin D, and appropriate weight-bearing exercise). Follow-Up: Consider a repeat BMD and Vertebral Fracture Assessment (VFA) exam in 2 years or sooner if medically necessary, to reassess this patient's status. Reported by: RACHEL on 08/07/2025 3:41:00 PM. Reviewed, dictated and finalized at location A.
== END 2025-08-07 15:00 | disposition home or self-care (01) ==
LOC: ANHFOHIMG 15:00
PROVIDERS: PCP Nurse Practitioner Family; Visit Provider Nurse Practitioner Obstetrics & Gynecology
DX: Z12.31 Encounter for screening mammogram for malignant neoplasm of breast (principal); Z78.0 Asymptomatic menopausal state; M85.88 Other specified disorders of bone density and structure, other site; M85.852 Other specified disorders of bone density and structure, left thigh; M85.851 Other specified disorders of bone density and structure, right thigh
CPT/HCPCS: 77063; 77067; 77080

== ENCOUNTER 2025-09-07 10:41 | Outpatient (CLI) | payer MEDICARE, SELFPAY ==
--- OUTSIDE RECORDS SUMMARY | 2024-04-18 11:30 | XMS_ITS ---
Author Organization [facility] [place] ([address]) Address [address] [place] [address] Care Team Providers Care Ingot Passer Name Role Phone Lalito Velarde Primary Care Provider Sofya Guerrero [phone] REASON FOR VISIT Asthma follow-up Encounters Encounter Location Date Provider Diagnosis [facility] [address] [place] [address] 04/18/2024 Sofya Murphy Plan Of Treatment No Information Progress Notes * Liam DOANOB:1955 (70 yo F)Acc No.[id number]:04/18/2024 Asthma F/U Patient: Alina HIDALGOTAVON Concepcion Provider: ELVIA Hui :1955 A ge:69 Y S ex:Female Date:04/18/2024 Address:[address] [place], [place] [address] [facility] Pcp:Lalito Velarde Subjective: * Chief Complaints: * 1 . Asthma follow-up. * Medical History: Objective: * Vitals: Assessment: Plan: * Treatment: * Billing Information: * Visit Code: * Procedure Codes: * Electronic signature of Sofya Murphy DNP, FNP-C on 09/07/2025 at 11:47 AM CINDER WORKER Sign off status: Pending * Provider: ELVIA Hui-C Date: 0 04/18/2024 Generated for Devika schmidt/Mert/Osorio on: 1 11/08/2024 11:47 AM CINDER WORKER
--- OUTSIDE RECORDS SUMMARY | 2025-09-07 11:47 | XMS_ITS | Patient Health Record ---
Author Organization Formerly [facility], [facility] [employer] [place] ([address]) Address [address] [facility] [address] [place] [address] Care Team Providers Care Case Briefer Name Role Phone Lalito Velarde Primary Care Provider Sofya Guerrero [phone] Allergies Allergen (clinical drug ingredient) Drug/Non Drug [...] e-prescription and drug interaction check* Active Ipratropium Hanson 0.06 % USE 2 SPRAY(S) INTRANASALLY 3 TIMES A DAY 30 DAYS Nasally three times a day; Duration: 30 days Active Arnuity Ellipta 100 MCG/ACT 1 puff(s) inhaled every 24 hours; Duration: 30 days Active Calcium 500+D 500 MG-10 MCG 1 TAB(S) CHEWED 2 TIMES A DAY *Please review and pick correct strength-formulati on from [employer] options. If intended option is not shown, [...] Status Risk Notes Problem Chronic allergic conjunctivitis (56207048) Other chronic allergic conjunctivitis (H10.45) Active confirmed Problem Allergic rhinitis caused by pollen (disorder) (32398064) Allergic rhinitis due to pollen (J30.1) Active confirmed Problem Allergic rhinitis (93628368) Other allergic rhinitis (J30.89) Active confirmed Problem Allergic rhinitis caused by animal hair and dander (264725067225097) Allergic rhinitis due to animal (cat) (dog) hair and dander (J30.81) Active confirmed Problem Allergy status t o other drugs, medicaments and biological substances (Z88.8) Active confirmed Problem Chronic cough (09106816) Chronic cough (R05.3) Active confirmed Plan Of Treatment No Information Insurance Providers Payer Name Payer Address Payer Phone Subscriber Number Group Number Insured Name Patient Relationship to Insured Coverage Start Date Coverage End Date [employer] (Medicare) Attention Claims [address] [place] [address] [id number] Concepcion Doan Self - patient is the insured 1 [facility] [address] [place] [address] [id number] Concepcion Doan Self - patient is the insured Medical (General) History Medical History History ICD Code seasonal allergies osteopenia anemia rhinitis Osteoarthritis Esophageal reflux post nasal drip Surgical History Surgery Date(Month/Year) broken wrist 1965
--- OUTSIDE RECORDS SUMMARY | 2025-09-07 11:47 | XMS_ITS | Clinical Summary ---
Author Organization [facility] Address [address] [place] [address] Care Team Providers Care Materials Coordinator Name Role Phone Unavailable Primary Care Provider [...] 10 mg by mouth nightly as needed. 5 Active CALCIUM CARBONATE ORAL Take 500 mg [...] Encounters Date Type Department Care Team Description 08/08/2025 External Device Data [facility] ABSTRACTION Provider, Abstract 07/31/2025 Telephone [facility] [address] [place] [address] Rick Contreras MD Lethargy (Due to iron and restless leg /) 07/12/2025 External Device Data [facility] ABSTRACTION Provider, Abstract 07/11/2025 External Device Data [facility] ABSTRACTION Provider, Abstract 06/14/2025 4:30 PM CDT Telephone Check Up [facility] [address] [place] [address] Rick Contreras MD Microcytic anemia (Primary Dx) from Last 3 Months Family History Medical [...] Care Team (Late st Contact Info) Description 09/29/2025 10:00 AM LIBRARY MONITOR Office Visit [facility] - [place] [address] [facility] [address] [place] [address] Rick Contreras MD [address] [facility] [address] [place] [address] Health Maintenance Due Date Last Done Comments DTAP/TDAP/TD VACCINES (1 - Tdap) 02/14/1975 BREAST CANCER SCREENING 1996 COLORECTAL SCREENING 02/14/2001 Colorectal Cancer Screening 02/14/2001 FIT-DNA Q 3 years 02/14/2001 FIT/FOBT Q 1 year 02/14/2001 Flex Sig/CT Colonography Q 5 years 02/14/2001 PNEUMOCOCCAL VACCINE 50+ YEARS (1 of 1 - PCV) 02/15/20 06 ZOSTER VACCINE (1 of 2) 02/14/2006 OSTEOPOROSIS SCREENING 02/14/2021 INFLUENZA VACCINE (#1) 2025 RSV VACCINE (60+ or ) (1 - 1-dose 75+ series) 02/14/2031 Insurance MEDICARE PART A AND B [facility] [id number]
--- OUTSIDE RECORDS SUMMARY | 2025-09-07 11:48 | XMS_ITS | Clinical Summary ---
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]
--- OUTSIDE RECORDS SUMMARY | 2025-09-07 11:48 | XMS_ITS | Clinical Summary ---
Author Organization [facility] [address] Address [address] [place] [address] Care Team Providers Care Medical Assistant Ob Gyn Name Role Phone Lalito Velarde Primary Care Provider [phone] Allergies Active Allergy Reactions Criticality Noted Date Comments Oxybutynin Other (See comments) Low 12/10/2022 Heart issues Medications No known medications Active Problems No known active problems Social History Tobacco Use Types Packs/Day Years Used Date Smoking Tobacco: Never Assessed Comments Unknown Sex and Gender Information Value Date Recorded Sex Assigned at Not on file 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
--- OUTSIDE RECORDS SUMMARY | 2025-09-07 11:48 | XMS_ITS | Patient Health Record ---
Author Organization [facility] Address [address] [place] [address] Care Team Providers Care Space Scheduler Name Role Phone Darrel Baumann [phone] Allergies Allergen (clinical drug ingredient) Drug/Non Drug Allergy documented on EMR Reaction Allergy Type Onset Date Status propofol propafol (uncoded) Unknown Allergy A ctive Reason For Referral No Information Medications Medication SIG (Take, Route, Frequency, Duration) Notes Start Date End Date Status Calcium 500+D Active Iron Active Wellbutrin 100 mg tablet 1 tab(s) orally 2 times a day Active Flonase 50 mcg/inh spray 1 spray(s) intr anasally once a day Active Vitamin B-100 Active zolpidem Active busPIRone Active Ambien 10 mg tablet 1 tab(s) orally once a day (at bedtime) Active Lexapro 5 mg tablet 2 tab(s) orally once a day Active escitalopram Active Actonel Active Immunizations Vaccine Route Administration Date Status Comme nts Influenza Unknown 02/21/2019 Refused Pneumococcal Unknown 08/20/2016 Pending Influenza Unknown 08/20/2016 Pending Social History Tobacco Use: Social History Observation Description Date Details (start date - stop date) Never Smoker NA - NA Social History General Social Info Question Answer Notes Alcohol Did you have a drink containing alcohol i n the past year? Yes How often did you have six or more drinks on one occasion in the past year? Daily or almost daily (4 points) how many drink did you have on a typical day when you were drinking in the past year? 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 Problem Lentigo (189056285) Lentigo (709.09) Active confirmed Problem Scar of skin (04127401) Scar of skin NOS (709.2) Active confirmed Problem Seborrheic keratosis (02747509) Seborrheic Keratosis (702.19) Active confirmed Problem Actinic keratosis (471067) Actinic Keratosis (702.0) Active confirmed Problem Verruca vulgaris (01985559) Verruca Vulgaris (078.10) Active confirmed Problem Owens angioma (9547876) Owens angioma (448.1) Active confirmed Problem Epidermal inclusion cyst (406568430) Epidermal inclusion cyst (706.2) Active confirmed Problem Benign neoplasm of skin (91855000) Benign neoplasm of other specified sites of skin (216.8) Active confirmed Problem Actinic keratosis (172989) Actinic keratosis (L57.0) Active confirmed Problem Neoplastic disease of uncertain behavior (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) Neoplasm of unspecified behavior of bone, soft tissue, and skin (D49.2) Active confirmed Problem Seborrheic keratosis (10016615) Seborrheic keratosis (L82.1) Active confirmed Problem Squamous cell carcinoma (781891863) Squamous cell carcinoma (C80.1) Active confirmed Problem Epidermal inclusion cyst (798757374) Epidermal inclusion cyst (L72.0) Active confirmed Problem Eruptive melanocytic nevi (426442253) Benign nevus of skin (D22.9) Active confirmed Problem Owens angioma (9800935) Owens angioma (D18.01) Active confirmed Plan Of Treatment Pending Test Test Name Order Date Dermatopathology: [facility] 10/01/2017 Insurance Providers Payer Name Payer Address Payer Phone Subscriber Number Group Number Insured Name Patient Relationship to Insured Coverage Start Date Coverage End Date [employer] [place] P[place] [address] [place] [address] [id number] Concepcion Doan Self - patient is the insured Medical (General) History Medical History History ICD Code Inv SCC Actinic Keratosis Surgical History Surgery Date(Month/Year) Mohs to treat Inv SCC right lateral thig h
[2025-09-07 18:42] LABS: Hematocrit 38.5 % (37.0-47.0); Hemoglobin 11.6 g/dL (12.0-15.0); Immature Platelet Fraction Pct 5.2 % (0.9-11.2); Mean Corpuscular HGB Conc 30.1 g/dl (32-36); Mean Corpuscular Hemoglobin 22.0 pg (26-34); Mean Corpuscular Volume 72.9 fl (80-100); Platelet Count Result 254 k/mm3 (150-375); Red Blood Count 5.28 M/mm3 (4.2-5.4); White Blood Count 5.5 K/mm3 (4.5-10.0)
[2025-09-07 18:52] LABS: Alanine Aminotransferase 30 U/L (6-35); Aspartate Amino Transferase 38 U/L (14-36)
[2025-09-07 18:58] LABS: Iron 115 ug/dL (37-170)
[2025-09-07 19:13] LABS: Percent Iron Saturation 42 % (20-50)
[2025-09-07 19:30] LABS: Ferritin 66.90 ng/mL (11.1-264)
== END 2025-09-07 10:42 | disposition home or self-care (01) ==
PROVIDERS: Podiatrist Foot & Ankle Surgery; PCP Nurse Practitioner Family; Visit Provider Internal Medicine Hematology & Oncology
DX: D50.9 Iron deficiency anemia, unspecified (principal); B35.1 Tinea unguium
CPT/HCPCS: 36415; 82728; 83540; 83550; 84450; 84460; 85027; 85055